=== PATIENT | male | born 1955 | race African-American/Black ===

== ENCOUNTER 2016-07-01 12:53 | Inpatient (IN) | payer OTHER ==
[2016-07-01 15:22] VITALS: BMI 27.3
--- NOTE | 2016-07-01 16:28 | HP ---
COWS - Scale Resting Pulse: 0= [place] 80 or Below Sweatin= Chills/Flushing Restless Observation: 3= Extraneous Movement Pupil Size: 0= Normal to Room Light Bone or Joint Aches: 2= Severe Diffuse Aches Runny Nose/ Eye Tearin= Runny Nose/Eyes GI Upset > 30mins: 3= Vomiting/Diarrhea Tremor Observation: 2= Slight Tremor Visible Yawning Observation: 0= None Anxiety or Irritability: 2=Irritable/Anxious Goose Flesh Skin: 3=Piloerection COWS Score: 18 Admission ROS S - [facility] Chief Complaint: withdrawal sx Allergies/Adverse Reactions: Allergies Allergy/AdvReac Type Severity Reaction Status Date / Time No Known Allergies Allergy Verified 01/02/16 16:24 History of Present Illness: 61 years old male with long history of opiate nicotine dependence has hypertension asthma and arthritis of the knees ambulate with cane x 1 1/2 yearss , has schizophrenia have not hear voice "for a long time" is admitted to detox Exam Limitations: No Limitations - Ebola screening Have you traveled outside of the country in the last 21 days: No Have you had contact with anyone from an Ebola affected area: No Have you been sick,other than usual withdrawal symptoms: No Do you have a fever: No - Review of Systems Constitutional: Night Sweats, Changes in sleep EENT: reports: Other (eye glassess at home) Respiratory: reports: SOB with Exertion, Productive cough (greenish) Cardiac: reports: No Symptoms Reported GI: reports: Diarrhea, Nausea, Poor Fluid Intake, Vomiting, Abdominal cramping : reports: No Symptoms Reported Musculoskeletal: reports: Back Pain, Joint Pain, Muscle Pain, Muscle Weakness ( knees), Neck Pain Integumentary: reports: Dryness Neuro: reports: Tremors Endocrine: reports: No Symptoms Reported Hematology: reports: No Symptoms Reported Psychiatric: reports: Judgement Intact, Orientated x3, other (schizophrenia) Other Systems: Reviewed and Negative Patient History - Patient Medical History Hx Anemia: Yes (SICKLE CELL ANEMIA WITH CRISIS, 04/2016) Hx Asthma: Yes (on albuterol inhaler) Hx Chronic Obstructive Pulmonary Disease (COPD): No Hx Cancer: No Hx Cardiac Disorders: No Hx Congestive Heart Failure: No Hx Hypertension: Yes (non compliance) Hx Hypercholesterolemia: No Hx Pacemaker: No HX Cerebrovascular Accident: No Hx Seizures: No Hx Dementia: No Hx Diabetes: No Hx Gastrointestinal Disorders: No Hx Liver Disease: No Hx Genitourinary Disorders: No Hx Sexually Transmitted Disorders: No Hx Renal Disease (ESRD): No Hx Thyroid Disease: No Hx Human Immunodeficiency Virus (HIV): No Hx Hepatitis C: No Hx Depression: No Hx Suicide Attempt: No Hx Bipolar Disorder: No Hx Schizophrenia: Yes (paranoiod schizophrenia) - Patient Surgical History Past Surgical History: Yes Hx Neurologic Surgery: No Hx Cataract Extraction: No Hx Cardiac Surgery: No Hx Lung Surgery: No Hx Breast Surgery: No Hx Breast Biopsy: No Hx Abdominal Surgery: Yes (SPLENECTOMY IN 1998) Hx Appendectomy: No Hx Cholecystectomy: No Hx Genitourinary Surgery: No Hx Orthopedic Surgery: No Other Surgical History: Left inguinal hernia repair Anesthesia Reaction: No - PPD History Previous Implant?: Yes Documented Results: Negative w/proof Implanted On [facility] Admission?: Yes Date: 12/27/15 Results: 0 mm PPD to be Administered?: No - Smoking Cessation Smoking history: Current every day smoker Have you smoked in the past 12 months: Yes Aproximately how many cigarettes per day: 20 If you are a former smoker, when did you quit?: 2 WEEKS AGO Cigars Per Day: 0 Hx Chewing Tobacco Use: No Initiated information on smoking cessation: Yes 'Breaking Loose' booklet given: 07/01/16 - Substance & Tx. History Hx Alcohol Use: No Hx Substance Use: Yes Substance Use Type: Opiates Hx Substance Use Treatment: Yes - Substances Abused Heroin Route: Inhalation Frequency: Daily Amount used: 20 bags Age of first use: 18 Date of Last Use: 07/01/16 Family Disease History - Family Disease History Family Disease History: Heart Disease: Mother (HTN,?CAV,DRUG & ALCOHOL,) , Other: Father (no contact), Mother, Brother (no contact) Admission Physical Exam BHS - Vital Signs Vital Signs: Vital Signs - 24 hr 07/01/16 15:20 Temperature 96.4 F L Pulse Rate 66 Respiratory 16 Rate Blood Pressure 159/87 - Physical General Appearance: Yes: Nourished, Appropriately Dressed, Moderate Distress, Tremorous, Irritable, Sweating, Anxious HEENTM: Yes: Hearing grossly Normal, Normal ENT Inspection, Normocephalic, Normal Voice Respiratory: Yes: Chest Non-Tender, Lungs Clear, Normal Breath Sounds, No Respiratory Distress, No Accessory Muscle Use Neck: Yes: Supple, Trachea in good position Breast: Yes: Breasts Symetrical Cardiology: Yes: Regular Rhythm, S1, S2, Murmur (x 2 years unable to audiable) Abdominal: Yes: Non Tender, Soft Genitourinary: Yes: Within Normal Limits Back: Yes: Normal Inspection Musculoskeletal: Yes: Gait Steady, Muscle weakness (legs) Extremities: Yes: Normal Range of Motion, Non-Tender, Tremors Neurological: Yes: Fully Oriented, Alert, Normal Response, Depressed Affect Integumentary: Yes: Dry, Warm Lymphatic: Yes: Within Normal Limits - Diagnostic (1) Essential hypertension Current Visit: Yes Status: Acute (2) Paranoid schizophrenia Current Visit: Yes Status: Suspected (3) Asthma Current Visit: Yes Status: Acute Qualifiers: Asthma severity: mild intermittent Asthma complication type: with status asthmaticus Qualified Code(s): J45.22 - Mild intermittent asthma with status asthmaticus (4) Nicotine dependence Current Visit: Yes Status: Acute Qualifiers: Nicotine product type: cigarettes Substance use status: in withdrawal Qualified Code(s): F17.213 - Nicotine dependence, cigarettes, with withdrawal (5) Opioid dependence with withdrawal Current Visit: Yes Status: Acute (6) Sickle cell anemia Current Visit: Yes Status: Inactive Qualifiers: Sickle-cell associated disorders: with splenic sequestration Qualified Code(s): 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
[2016-07-01] MEDS ORDERED: IBUPROFEN 400 MG TABLET (FP) PO PRN ×2 (16:36→16:46)
[2016-07-01] MEDS ORDERED: MAG HYDROX/AL HYDROX/SIMETH 30 ML UNIT-DOSE CUP PO PRN (16:36)
[2016-07-01] MEDS ORDERED: guaiFENesin/D-METHORPHAN HB 10 ML UNIT-DOSE CUPS PO PRN (16:36)
[2016-07-01] MEDS ORDERED: LOPERAMIDE HCL 2 MG CAPSULE PO PRN (16:36)
[2016-07-01] MEDS ORDERED: MAGNESIUM HYDROX 2400MG/30ML ORAL SUSPENSION 30 ML CUP PO PRN (16:36)
[2016-07-01] MEDS ORDERED: MAGNESIUM CITRATE 300 ML BOTTLE PO PRN (16:36)
[2016-07-01] MEDS ORDERED: MENTHOL/PHENOL 1 EACH UD MM PRN (16:36)
[2016-07-01] MEDS ORDERED: P-EPHED 60MG/TRIPROLIDI 2.5MG TABLET PO PRN (16:36)
[2016-07-01] MEDS ORDERED: NICOTINE POLACRILEX 4 MG GUM BC PRN (16:36)
[2016-07-01] MEDS ORDERED: ALBUTEROL SO4 6.7 GM HFA INHALER IH PRN (16:39)
[2016-07-01] MEDS ORDERED: COLLOIDAL OATMEAL 1 BAR EACH TP PRN (16:51)
[2016-07-01] MEDS ORDERED: METHADONE HCL 10 MG TABLET (FOR DETOX USE ONLY) PO ONE ×2 (18:30→23:00)
[2016-07-01] MEDS: diazePAM 5 MG TABLET PO PRN (19:18)
[2016-07-01] MEDS: IBUPROFEN 600 MG TABLET (FP) PO PRN (19:30)
[2016-07-01 21:11] LABS: MCH 33.6 pg (25.7-33.7); MEAN CELL VOLUME 101.9 fl (80-96); MEAN PLT VOLUME 9.3 fl (7.5-11.1); PLATELET COUNT 418 K/MM3 (134-434); RDW 23.8 % (11.9-15.9); WHITE BLOOD COUNT 12.9 K/mm3 (4.0-10.0)
[2016-07-01 21:33] LABS: ALBUMIN 4.7 g/dl (3.4-5.0); ALK PHOS 155 U/L (45-117); ANION GAP 9 (8-16); BILIRUBIN,TOTAL 2.1 mg/dL (0.2-1.0); CALCIUM 9.2 mg/dL (8.5-10.1); CO2 27 mmol/L (21-32); CREATININE 0.7 mg/dL (0.7-1.3); GLUCOSE,RANDOM 100 mg/dL (74-106); SGOT/AST 17 U/L (15-37); SGPT/ALT 24 U/L (12-78); TOT PROT 7.5 g/dl (6.4-8.2)
[2016-07-01] MEDS: [UNRECOGNIZED DRUG - OTHER] PO SCH (22:22)
[2016-07-01] MEDS: THIAMINE HCL 100 MG TABLET (FP) PO SCH (22:22)
[2016-07-01] MEDS: diphenhydrAMINE HCL 50 MG CAPSULE PO PRN (22:23)
[2016-07-01] MEDS: MINERAL OIL/PETROLAT/WATER TOPICAL CREAM 113 GM JAR TP SCH (22:23)
[2016-07-01 22:56] LABS: ANISOCYTOSIS 3+; HYPOCHROMIA 2+
[2016-07-01 22:57] LABS: OVALOCYTES 1+; TARGET CELLS 1+
[2016-07-01] MEDS: NIFEdipine E.R. 30 MG TABLET (FP) PO SCH (23:03)
[2016-07-01 23:11] LABS: URINE APPEARANCE CLEAR; URINE BILIRUBIN NEGATIVE (NEGATIVE); URINE BLOOD NEGATIVE (NEGATIVE); URINE COLOR YELLOW; URINE GLUCOSE (UA) NEGATIVE (NEGATIVE); URINE KETONE NEGATIVE (NEGATIVE); URINE LEUK ESTERASE NEGATIVE (NEGATIVE); URINE NITRITE NEGATIVE (NEGATIVE); URINE PROTEIN NEGATIVE (NEGATIVE); URINE UROBILINOGEN NEGATIVE E.U./dl (0.2-1.0)
[2016-07-02] MEDS: IBUPROFEN 600 MG TABLET (FP) PO PRN ×2 (03:52→13:42)
--- NOTE | 2016-07-02 08:02 | PN ---
S COWS - Scale Resting Pulse: 1= [place] 81-100 Sweatin= Chills/Flushing Restless Observation: 3= Extraneous Movement Pupil Size: 2= Moderately Dilated Bone or Joint Aches: 2= Severe Diffuse Aches Runny Nose/ Eye Tearin= Runny Nose/Eyes GI Upset > 30mins: 3= Vomiting/Diarrhea Tremor Observation of Outstretched Hands: 2= Slight Tremor Visible Yawning Observation: 1= 1-2x During Session Anxiety or Irritability: 2=Irritable/Anxious Goose Flesh Skin: 0=Smooth Skin COWS Score: 19 S Progress Note (SOAP) Subjective: ALERT,IRRITABLE,ANXIOUS,INTERRUPTED SLEEP,TREMOR,PAIN IN THE BODY AND BACK Objective: 07/02/16 07:59 Vital Signs Temperature 98.7 F 07/01/16 21:55 Pulse Rate 88 07/01/16 21:55 Respiratory Rate 18 07/02/16 06:30 Blood Pressure 154/73 07/01/16 21:55 O2 Sat by Pulse Oximetry (%) EKG NSR WITH PAC NO CHEST PAIN,NO SOB,NO DIZZINESS Laboratory Last Values WBC 12.9 K/mm3 (4.0-10.0) H 07/01/16 11:00 RBC 2.81 M/mm3 (4.00-5.60) L 07/01/16 11:00 Hgb 9.5 GM/dL (11.7-16.9) L D 07/01/16 11:00 Hct 28.7 % (35.4-49) L D 07/01/16 11:00 MCV 101.9 fl (80-96) H 07/01/16 11:00 MCHC 33.0 g/dl (32.0-35.9) 07/01/16 11:00 RDW 23.8 % (11.9-15.9) H D 07/01/16 11:00 Plt Count 418 K/MM3 (134-434) 07/01/16 11:00 MPV 9.3 fl (7.5-11.1) 07/01/16 11:00 Hypochromic-Microcytic 2+ 07/01/16 11:00 Anisocytosis 3+ 07/01/16 11:00 Macrocytosis 1+ 07/01/16 11:00 Sickle Cells 2+ 07/01/16 11:00 Target Cells 1+ 07/01/16 11:00 Ovalocytes 1+ 07/01/16 11:00 Sodium 138 mmol/L (136-145) 07/01/16 11:00 Potassium 4.6 mmol/L (3.5-5.1) 07/01/16 11:00 Chloride 102 mmol/L (98-107) 07/01/16 11:00 Carbon Dioxide 27 mmol/L (21-32) 07/01/16 11:00 Anion Gap 9 (8-16) 07/01/16 11:00 BUN 19 mg/dL (7-18) H 07/01/16 11:00 Creatinine 0.7 mg/dL (0.7-1.3) 07/01/16 11:00 Creat Clearance w eGFR > 60 (>60) 07/01/16 11:00 Random Glucose 100 mg/dL (74-106) 07/01/16 11:00 Calcium 9.2 mg/dL (8.5-10.1) 07/01/16 11:00 Total Bilirubin 2.1 mg/dL (0.2-1.0) H 07/01/16 11:00 AST 17 U/L (15-37) D 07/01/16 11:00 ALT 24 U/L (12-78) D 07/01/16 11:00 Alkaline Phosphatase 155 U/L (45-117) H D 07/01/16 11:00 Total Protein 7.5 g/dl (6.4-8.2) 07/01/16 11:00 Albumin 4.7 g/dl (3.4-5.0) 07/01/16 11:00 Urine Color Yellow 07/01/16 23:00 Urine Appearance Clear 07/01/16 23:00 Urine pH 5.0 (5.0-8.0) 07/01/16 23:00 Ur Specific [place] 1.014 (1.001-1.035) 07/01/16 23:00 Urine Protein Negative (NEGATIVE) 07/01/16 23:00 Urine Glucose (UA) Negative (NEGATIVE) 07/01/16 23:00 Urine Ketones Negative (NEGATIVE) 07/01/16 23:00 Urine Blood Negative (NEGATIVE) 07/01/16 23:00 Urine Nitrite Negative (NEGATIVE) 07/01/16 23:00 Urine Bilirubin Negative (NEGATIVE) 07/01/16 23:00 Urine Urobilinogen Negative E.U./dl (0.2-1.0) 07/01/16 23:00 Ur Leukocyte Esterase Negative (NEGATIVE) 07/01/16 23:00 LANS PENDING Assessment: 07/02/16 08:01 WITHDRAWAL SYMPTOM Plan: CONTINUE DETOX
[2016-07-02 09:09] LABS: HIV 1 & 2 AB NEGATIVE; HIV 1 AGp24 NEGATIVE
[2016-07-02] MEDS ORDERED: LISINOPRIL 10 MG TABLET (FP) PO SCH (10:00)
[2016-07-02] MEDS ORDERED: NIFEdipine E.R 60 MG TABLET (UD) PO SCH (10:00)
[2016-07-02] MEDS ORDERED: NIFEdipine E.R. 30 MG TABLET (FP) PO SCH (10:00)
[2016-07-02] MEDS ORDERED: METHADONE HCL 10 MG TABLET (FOR DETOX USE ONLY) PO ONE (10:00)
[2016-07-02] MEDS: NIFEdipine E.R. 30 MG TABLET (FP) PO SCH (10:09)
[2016-07-02] MEDS: HYDROXYUREA 500 MG CAPSULE PO SCH (10:09)
[2016-07-02] MEDS: PRENATAL VITAMINS W/ FOLIC ACID TABLET (FP) PO SCH (10:09)
[2016-07-02] MEDS: NICOTINE 21 MG/24 HOURS TOPICAL PATCH TD SCH (10:10)
[2016-07-02] MEDS: [UNRECOGNIZED DRUG - OTHER] PO SCH ×2 (10:10→22:58)
[2016-07-02] MEDS: LISINOPRIL 10 MG TABLET (FP) PO SCH (10:10)
[2016-07-02] MEDS: diazePAM 5 MG TABLET PO PRN ×2 (13:42→22:31)
--- NOTE | 2016-07-02 18:35 | CONSULT ---
[facility] Psychiatric Consult - Data Date of interview: 07/02/16 Admission source: Patient refused psychiatric evaluation.
[2016-07-02] MEDS: THIAMINE HCL 100 MG TABLET (FP) PO SCH (22:30)
[2016-07-02] MEDS: diphenhydrAMINE HCL 50 MG CAPSULE PO PRN (22:30)
[2016-07-02] MEDS: MINERAL OIL/PETROLAT/WATER TOPICAL CREAM 113 GM JAR TP SCH (22:58)
[2016-07-03] MEDS: ACETAMINOPHEN 325 MG TABLET (FP) PO PRN (06:05)
[2016-07-03] MEDS: diazePAM 5 MG TABLET PO PRN ×2 (06:06→19:43)
--- NOTE | 2016-07-03 08:41 | PN ---
S COWS - Scale Resting Pulse: 0= [place] 80 or Below Sweatin=Flushed/Facial Moisture Restless Observation: 3= Extraneous Movement Pupil Size: 1= Pupils >than Normal Bone or Joint Aches: 2= Severe Diffuse Aches Runny Nose/ Eye Tearin= Runny Nose/Eyes GI Upset > 30mins: 3= Vomiting/Diarrhea Tremor Observation of Outstretched Hands: 2= Slight Tremor Visible Yawning Observation: 1= 1-2x During Session Anxiety or Irritability: 2=Irritable/Anxious Goose Flesh Skin: 0=Smooth Skin COWS Score: 18 BHS Progress Note (SOAP) Subjective: ALERT,IRRITABLE,ANXIOUS,INTERRUPTED SLEEP,TREMOR,PAIN IN THE BODY Objective: 07/03/16 08:39 Vital Signs Temperature 98.1 F 07/03/16 06:42 Pulse Rate 73 07/03/16 06:42 Respiratory Rate 18 07/03/16 06:42 Blood Pressure 147/97 07/03/16 06:42 O2 Sat by Pulse Oximetry (%) Laboratory Last Values WBC 12.9 K/mm3 (4.0-10.0) H 07/01/16 11:00 RBC 2.81 M/mm3 (4.00-5.60) L 07/01/16 11:00 Hgb 9.5 GM/dL (11.7-16.9) L D 07/01/16 11:00 Hct 28.7 % (35.4-49) L D 07/01/16 11:00 MCV 101.9 fl (80-96) H 07/01/16 11:00 MCHC 33.0 g/dl (32.0-35.9) 07/01/16 11:00 RDW 23.8 % (11.9-15.9) H D 07/01/16 11:00 Plt Count 418 K/MM3 (134-434) 07/01/16 11:00 MPV 9.3 fl (7.5-11.1) 07/01/16 11:00 Hypochromic-Microcytic 2+ 07/01/16 11:00 Anisocytosis 3+ 07/01/16 11:00 Macrocytosis 1+ 07/01/16 11:00 Sickle Cells 2+ 07/01/16 11:00 Target Cells 1+ 07/01/16 11:00 Ovalocytes 1+ 07/01/16 11:00 Sodium 138 mmol/L (136-145) 07/01/16 11:00 Potassium 4.6 mmol/L (3.5-5.1) 07/01/16 11:00 Chloride 102 mmol/L (98-107) 07/01/16 11:00 Carbon Dioxide 27 mmol/L (21-32) 07/01/16 11:00 Anion Gap 9 (8-16) 07/01/16 11:00 BUN 19 mg/dL (7-18) H 07/01/16 11:00 Creatinine 0.7 mg/dL (0.7-1.3) 07/01/16 11:00 Creat Clearance w eGFR > 60 (>60) 07/01/16 11:00 Random Glucose 100 mg/dL (74-106) 07/01/16 11:00 Calcium 9.2 mg/dL (8.5-10.1) 07/01/16 11:00 Total Bilirubin 2.1 mg/dL (0.2-1.0) H 07/01/16 11:00 AST 17 U/L (15-37) D 07/01/16 11:00 ALT 24 U/L (12-78) D 07/01/16 11:00 Alkaline Phosphatase 155 U/L (45-117) H D 07/01/16 11:00 Total Protein 7.5 g/dl (6.4-8.2) 07/01/16 11:00 Albumin 4.7 g/dl (3.4-5.0) 07/01/16 11:00 Urine Color Yellow 07/01/16 23:00 Urine Appearance Clear 07/01/16 23:00 Urine pH 5.0 (5.0-8.0) 07/01/16 23:00 Ur Specific [place] 1.014 (1.001-1.035) 07/01/16 23:00 Urine Protein Negative (NEGATIVE) 07/01/16 23:00 Urine Glucose (UA) Negative (NEGATIVE) 07/01/16 23:00 Urine Ketones Negative (NEGATIVE) 07/01/16 23:00 Urine Blood Negative (NEGATIVE) 07/01/16 23:00 Urine Nitrite Negative (NEGATIVE) 07/01/16 23:00 Urine Bilirubin Negative (NEGATIVE) 07/01/16 23:00 Urine Urobilinogen Negative E.U./dl (0.2-1.0) 07/01/16 23:00 Ur Leukocyte Esterase Negative (NEGATIVE) 07/01/16 23:00 RPR Titer Nonreactive (NONREACTIVE) 07/01/16 11:00 HIV 1&2 Antibody Screen Negative 07/01/16 11:00 HIV P24 Antigen Negative 07/01/16 11:00 Assessment: 07/03/16 08:40 WITHDRAWAL [id number] Plan: CONTINUE DETOX,HISTORY OF ANEMIA,FERROUS SULFATE 325 MGS PO BID
[2016-07-03] MEDS ORDERED: METHADONE HCL 5 MG TABLET (FOR DETOX USE ONLY) PO ONE (10:00)
[2016-07-03] MEDS: PRENATAL VITAMINS W/ FOLIC ACID TABLET (FP) PO SCH (10:13)
[2016-07-03] MEDS: LISINOPRIL 10 MG TABLET (FP) PO SCH (10:14)
[2016-07-03] MEDS: IBUPROFEN 600 MG TABLET (FP) PO PRN ×2 (10:14→18:34)
[2016-07-03] MEDS: NIFEdipine E.R. 30 MG TABLET (FP) PO SCH (10:14)
[2016-07-03] MEDS: FERROUS SO4 325 MG TABLET (FP) PO SCH ×2 (10:14→22:13)
[2016-07-03] MEDS: NICOTINE 21 MG/24 HOURS TOPICAL PATCH TD SCH (10:14)
[2016-07-03] MEDS: [UNRECOGNIZED DRUG - OTHER] PO SCH ×2 (10:14→22:13)
[2016-07-03] MEDS: HYDROXYUREA 500 MG CAPSULE PO SCH (10:14)
--- NOTE | 2016-07-03 13:18 | EKG ---
Test Reason : Blood Pressure : / mmHG Vent. Rate : 074 BPM Atrial Rate : 074 BPM P-R Int : 204 ms QRS Dur : 132 ms QT Int : 426 ms P-R-T Axes : 079 022 044 degrees QTc Int : 472 ms NORMAL SINUS RHYTHM POSSIBLE LEFT ATRIAL ENLARGEMENT NON-SPECIFIC CHANGE IN ST SEGMENT IN NON-SPECIFIC INTRA-VENTRICULAR CONDUCTION BLOCK ABNORMAL ECG WHEN COMPARED WITH ECG OF 01-JUL-2016 21:08, PREMATURE ATRIAL COMPLEXES ARE NO LONGER PRESENT Confirmed by ERNIE CARABALLO MD ([id number]) on 07/03/2016 1:18:12 PM Referred By: Confirmed By:ERNIE CARABALLO MD
--- NOTE | 2016-07-03 13:23 | EKG ---
Test Reason : Blood Pressure : / mmHG Vent. Rate : 075 BPM Atrial Rate : 075 BPM P-R Int : 206 ms QRS Dur : 132 ms QT Int : 406 ms P-R-T Axes : 076 025 053 degrees QTc Int : 453 ms SINUS RHYTHM WITH PREMATURE ATRIAL COMPLEXES POSSIBLE LEFT ATRIAL ENLARGEMENT NON-SPECIFIC INTRA-VENTRICULAR CONDUCTION BLOCK ABNORMAL ECG Confirmed by ERNIE CARABALLO MD ([id number]) on 07/03/2016 1:23:05 PM Referred By: Confirmed By:ERNIE CARABALLO MD
[2016-07-03] MEDS: diphenhydrAMINE HCL 50 MG CAPSULE PO PRN (22:13)
[2016-07-03] MEDS: THIAMINE HCL 100 MG TABLET (FP) PO SCH (22:13)
[2016-07-03] MEDS: MINERAL OIL/PETROLAT/WATER TOPICAL CREAM 113 GM JAR TP SCH (22:14)
[2016-07-04] MEDS: IBUPROFEN 600 MG TABLET (FP) PO PRN ×2 (05:58→15:25)
[2016-07-04] MEDS: diazePAM 5 MG TABLET PO PRN (05:58)
--- NOTE | 2016-07-04 09:29 | PN ---
S Progress Note (SOAP) Subjective: ALERT,IRRITABLE,ANXIOUS,INTERRUPTED SLEEP,PAIN IN THE BODY AND RIGHT KNEE Objective: 07/04/16 09:28 Vital Signs Temperature 97.3 F L 07/04/16 06:37 Pulse Rate 72 07/04/16 06:37 Respiratory Rate 16 07/04/16 06:37 Blood Pressure 158/91 07/04/16 06:37 O2 Sat by Pulse Oximetry (%) Assessment: 07/04/16 09:28 WITHDRAWAL SYMPTOM Plan: CONTINUE DETOX
[2016-07-04] MEDS ORDERED: METHADONE HCL 5 MG TABLET (FOR DETOX USE ONLY) PO ONE (10:00)
[2016-07-04] MEDS: LISINOPRIL 10 MG TABLET (FP) PO SCH (10:22)
[2016-07-04] MEDS: FERROUS SO4 325 MG TABLET (FP) PO SCH ×2 (10:22→22:04)
[2016-07-04] MEDS: HYDROXYUREA 500 MG CAPSULE PO SCH (10:22)
[2016-07-04] MEDS: PRENATAL VITAMINS W/ FOLIC ACID TABLET (FP) PO SCH (10:23)
[2016-07-04] MEDS: [UNRECOGNIZED DRUG - OTHER] PO SCH ×2 (10:23→22:04)
[2016-07-04] MEDS: NICOTINE 21 MG/24 HOURS TOPICAL PATCH TD SCH (10:23)
[2016-07-04] MEDS: NIFEdipine E.R. 30 MG TABLET (FP) PO SCH (10:23)
[2016-07-04] MEDS: THIAMINE HCL 100 MG TABLET (FP) PO SCH (22:04)
[2016-07-04] MEDS: diphenhydrAMINE HCL 50 MG CAPSULE PO PRN (22:04)
[2016-07-04] MEDS: MINERAL OIL/PETROLAT/WATER TOPICAL CREAM 113 GM JAR TP SCH (22:05)
[2016-07-04] MEDS: METOPROLOL SUCCINATE 25 MG TAB.SR.24H (FP) PO SCH (23:19)
[2016-07-05] MEDS: IBUPROFEN 600 MG TABLET (FP) PO PRN ×2 (02:20→18:37)
[2016-07-05] MEDS ORDERED: METOPROLOL SUCCINATE 25 MG TAB.SR.24H (FP) PO SCH (10:00)
[2016-07-05] MEDS ORDERED: METHADONE HCL 10 MG TABLET (FOR DETOX USE ONLY) PO ONE (10:00)
[2016-07-05] MEDS ORDERED: ONDANSETRON *ODT* 4 MG TABLET SL PRN (10:08)
[2016-07-05] MEDS: FERROUS SO4 325 MG TABLET (FP) PO SCH ×2 (10:22→22:11)
[2016-07-05] MEDS: NICOTINE 21 MG/24 HOURS TOPICAL PATCH TD SCH ×2 (10:22→11:52)
[2016-07-05] MEDS: METOPROLOL SUCCINATE 25 MG TAB.SR.24H (FP) PO SCH ×2 (10:22→22:11)
[2016-07-05] MEDS: PRENATAL VITAMINS W/ FOLIC ACID TABLET (FP) PO SCH (10:22)
[2016-07-05] MEDS: LISINOPRIL 10 MG TABLET (FP) PO SCH (10:22)
[2016-07-05] MEDS: HYDROXYUREA 500 MG CAPSULE PO SCH (10:22)
[2016-07-05] MEDS: NIFEdipine E.R. 30 MG TABLET (FP) PO SCH (10:23)
[2016-07-05] MEDS: [UNRECOGNIZED DRUG - OTHER] PO SCH ×2 (10:23→22:29)
--- NOTE | 2016-07-05 13:57 | PN ---
S Progress Note (SOAP) Subjective: Nausea / Vomiting, Sweating, Tremors, Body Aches. Pt. reporting discomfort in scrotum when urinating X approximately 1 week. Pt. also reporting that he has noticed urine "leaking" and discharge of "pus" from penis. Objective: PT. A & O X 1 (DISORIENTED ABOUT DAY / DATE AND LOCATION). PT. OBSERVED AMBULATING ON UNIT. Visual inspection of penis and scrotum areas revealed no abnormalities, including pus, lesions, redness, swelling, or any signs of infection. No abnormalities noted in UA drawn on admission. 07/05/16 13:54 Vital Signs Temperature 96.4 F L 07/05/16 10:22 Pulse Rate 72 07/05/16 10:22 Respiratory Rate 16 07/05/16 10:22 Blood Pressure 154/92 07/05/16 10:22 O2 Sat by Pulse Oximetry (%) Laboratory Last Values WBC 12.9 K/mm3 (4.0-10.0) H 07/01/16 11:00 RBC 2.81 M/mm3 (4.00-5.60) L 07/01/16 11:00 Hgb 9.5 GM/dL (11.7-16.9) L D 07/01/16 11:00 Hct 28.7 % (35.4-49) L D 07/01/16 11:00 MCV 101.9 fl (80-96) H 07/01/16 11:00 MCHC 33.0 g/dl (32.0-35.9) 07/01/16 11:00 RDW 23.8 % (11.9-15.9) H D 07/01/16 11:00 Plt Count 418 K/MM3 (134-434) 07/01/16 11:00 MPV 9.3 fl (7.5-11.1) 07/01/16 11:00 Hypochromic-Microcytic 2+ 07/01/16 11:00 Anisocytosis 3+ 07/01/16 11:00 Macrocytosis 1+ 07/01/16 11:00 Sickle Cells 2+ 07/01/16 11:00 Target Cells 1+ 07/01/16 11:00 Ovalocytes 1+ 07/01/16 11:00 Sodium 138 mmol/L (136-145) 07/01/16 11:00 Potassium 4.6 mmol/L (3.5-5.1) 07/01/16 11:00 Chloride 102 mmol/L (98-107) 07/01/16 11:00 Carbon Dioxide 27 mmol/L (21-32) 07/01/16 11:00 Anion Gap 9 (8-16) 07/01/16 11:00 BUN 19 mg/dL (7-18) H 07/01/16 11:00 Creatinine 0.7 mg/dL (0.7-1.3) 07/01/16 11:00 Creat Clearance w eGFR > 60 (>60) 07/01/16 11:00 Random Glucose 100 mg/dL (74-106) 07/01/16 11:00 Calcium 9.2 mg/dL (8.5-10.1) 07/01/16 11:00 Total Bilirubin 2.1 mg/dL (0.2-1.0) H 07/01/16 11:00 AST 17 U/L (15-37) D 07/01/16 11:00 ALT 24 U/L (12-78) D 07/01/16 11:00 Alkaline Phosphatase 155 U/L (45-117) H D 07/01/16 11:00 Total Protein 7.5 g/dl (6.4-8.2) 07/01/16 11:00 Albumin 4.7 g/dl (3.4-5.0) 07/01/16 11:00 Urine Color Yellow 07/01/16 23:00 Urine Appearance Clear 07/01/16 23:00 Urine pH 5.0 (5.0-8.0) 07/01/16 23:00 Ur Specific [place] 1.014 (1.001-1.035) 07/01/16 23:00 Urine Protein Negative (NEGATIVE) 07/01/16 23:00 Urine Glucose (UA) Negative (NEGATIVE) 07/01/16 23:00 Urine Ketones Negative (NEGATIVE) 07/01/16 23:00 Urine Blood Negative (NEGATIVE) 07/01/16 23:00 Urine Nitrite Negative (NEGATIVE) 07/01/16 23:00 Urine Bilirubin Negative (NEGATIVE) 07/01/16 23:00 Urine Urobilinogen Negative E.U./dl (0.2-1.0) 07/01/16 23:00 Ur Leukocyte Esterase Negative (NEGATIVE) 07/01/16 23:00 RPR Titer Nonreactive (NONREACTIVE) 07/01/16 11:00 HIV 1&2 Antibody Screen Negative 07/01/16 11:00 HIV P24 Antigen Negative 07/01/16 11:00 LABS NOTED. Assessment: 07/05/16 13:57 WITHDRAWAL SYMPTOMS Plan: CONTINUE DETOX. PRN ZOFRAN FOR NAUSEA / VOMITING. PATIENT ENCOURAGED TO INCREASE PO FLUID INTAKE.
[2016-07-05] MEDS: ACETAMINOPHEN 325 MG TABLET (FP) PO PRN (20:12)
[2016-07-05] MEDS: THIAMINE HCL 100 MG TABLET (FP) PO SCH (22:11)
[2016-07-05] MEDS: diphenhydrAMINE HCL 50 MG CAPSULE PO PRN (22:12)
[2016-07-05] MEDS: MINERAL OIL/PETROLAT/WATER TOPICAL CREAM 113 GM JAR TP SCH (22:13)
[2016-07-06] MEDS ORDERED: METHADONE HCL 5 MG TABLET (FOR DETOX USE ONLY) PO ONE (06:00)
[2016-07-06 06:26] VITALS: BP 145/85; PULSE 66; TEMP 97.3
--- NOTE | 2016-07-06 14:05 | DS ---
[facility] Detox Discharge Summary Admission Date: 07/01/16 Discharge Date: 07/06/16 - History Present History: Opioid Dependence Additional Comments: ADVISED PATIENT TO FOLLOW-UP WITH [facility] / REHAB MEDICAL PROVIDER AFTER DISCHARGE FROM DETOX FOR GENERAL MEDICAL ASSESSMENT AND ABNORMAL LAB VALUES. Pertinent Past History: Asthma, HTN, Sickle Cell Anemia, Schizophrenia. - Physical Exam Results Vital Signs: Vital Signs Temperature 97.3 F L 07/06/16 06:25 Pulse Rate 66 07/06/16 06:25 Respiratory Rate 16 07/06/16 06:25 Blood Pressure 145/85 07/06/16 06:25 O2 Sat by Pulse Oximetry (%) Pertinent Admission Physical Exam Findings: WITHDRAWAL SYMPTOMS. Laboratory Last Values WBC 12.9 K/mm3 (4.0-10.0) H 07/01/16 11:00 RBC 2.81 M/mm3 (4.00-5.60) L 07/01/16 11:00 Hgb 9.5 GM/dL (11.7-16.9) L D 07/01/16 11:00 Hct 28.7 % (35.4-49) L D 07/01/16 11:00 MCV 101.9 fl (80-96) H 07/01/16 11:00 MCHC 33.0 g/dl (32.0-35.9) 07/01/16 11:00 RDW 23.8 % (11.9-15.9) H D 07/01/16 11:00 Plt Count 418 K/MM3 (134-434) 07/01/16 11:00 MPV 9.3 fl (7.5-11.1) 07/01/16 11:00 Hypochromic-Microcytic 2+ 07/01/16 11:00 Anisocytosis 3+ 07/01/16 11:00 Macrocytosis 1+ 07/01/16 11:00 Sickle Cells 2+ 07/01/16 11:00 Target Cells 1+ 07/01/16 11:00 Ovalocytes 1+ 07/01/16 11:00 Sodium 138 mmol/L (136-145) 07/01/16 11:00 Potassium 4.6 mmol/L (3.5-5.1) 07/01/16 11:00 Chloride 102 mmol/L (98-107) 07/01/16 11:00 Carbon Dioxide 27 mmol/L (21-32) 07/01/16 11:00 Anion Gap 9 (8-16) 07/01/16 11:00 BUN 19 mg/dL (7-18) H 07/01/16 11:00 Creatinine 0.7 mg/dL (0.7-1.3) 07/01/16 11:00 Creat Clearance w eGFR > 60 (>60) 07/01/16 11:00 Random Glucose 100 mg/dL (74-106) 07/01/16 11:00 Calcium 9.2 mg/dL (8.5-10.1) 07/01/16 11:00 Total Bilirubin 2.1 mg/dL (0.2-1.0) H 07/01/16 11:00 AST 17 U/L (15-37) D 07/01/16 11:00 ALT 24 U/L (12-78) D 07/01/16 11:00 Alkaline Phosphatase 155 U/L (45-117) H D 07/01/16 11:00 Total Protein 7.5 g/dl (6.4-8.2) 07/01/16 11:00 Albumin 4.7 g/dl (3.4-5.0) 07/01/16 11:00 Urine Color Yellow 07/01/16 23:00 Urine Appearance Clear 07/01/16 23:00 Urine pH 5.0 (5.0-8.0) 07/01/16 23:00 Ur Specific [place] 1.014 (1.001-1.035) 07/01/16 23:00 Urine Protein Negative (NEGATIVE) 07/01/16 23:00 Urine Glucose (UA) Negative (NEGATIVE) 07/01/16 23:00 Urine Ketones Negative (NEGATIVE) 07/01/16 23:00 Urine Blood Negative (NEGATIVE) 07/01/16 23:00 Urine Nitrite Negative (NEGATIVE) 07/01/16 23:00 Urine Bilirubin Negative (NEGATIVE) 07/01/16 23:00 Urine Urobilinogen Negative E.U./dl (0.2-1.0) 07/01/16 23:00 Ur Leukocyte Esterase Negative (NEGATIVE) 07/01/16 23:00 RPR Titer Nonreactive (NONREACTIVE) 07/01/16 11:00 HIV 1&2 Antibody Screen Negative 07/01/16 11:00 HIV P24 Antigen Negative 07/01/16 11:00 LABS NOTED. - Treatment Hospital Course: Detox Protocol Followed, Detoxed Safely, Responded well, Discharged Condition Good Patient has Accepted a Rehab Referral to: PT. TO GO HOME FOR [facility] AND WILL SEEK OUT REHAB ON HIS OWN. - Medication Discharge Medications: Ambulatory Orders Risperidone [Risperdal -] 1 mg PO BID #60 tablet 02/02/14 Albuterol Sulfate Inhaler - [Ventolin Hfa Inhaler -] 2 inh PO Q4H 12/30/15 Mirtazapine [Remeron -] 7.5 mg PO HS #60 tablet 01/08/16 Ca/D3/Mag Ox/Zinc/Recovery Assistant/Se/Bor [Calcium 600+D3 Plus Caplet] 1 each PO BID Sertraline HCl [Zoloft -] 50 mg PO DAILY 07/01/16 Albuterol Sulfate Inhaler - [Ventolin HFA Inhaler -] 2 puff IH Q4H PRN #1 inhaler 07/06/16 Folic Acid - 1 mg PO DAILY 30 Days 07/06/16 Hydroxyurea [Hydrea -] 500 mg PO DAILY #30 07/06/16 Lisinopril [Prinivil] 10 mg PO DAILY #30 tablet 07/06/16 Naproxen Sodium [Naproxen Sodium Ds] 550 mg PO DAILY PRN #30 07/06/16 Nifedipine ER [Procardia XL -] 30 mg PO DAILY #30 07/06/16 - Diagnosis (1) Asthma Status: Chronic Qualifiers: Asthma severity: mild intermittent Asthma complication type: uncomplicated Qualified Code(s): J45.20 - Mild intermittent asthma, uncomplicated (2) Cannabis dependence Status: Acute (3) Dry skin Status: Chronic (4) Essential hypertension Status: Chronic (5) Nicotine dependence Status: Chronic Qualifiers: Nicotine product type: cigarettes Substance use status: in withdrawal Qualified Code(s): F17.213 - Nicotine dependence, cigarettes, with withdrawal (6) Opioid dependence with withdrawal Status: Acute (7) Weight decreased Status: Acute (8) Use of cane as ambulatory aid Status: Chronic (9) Paranoid schizophrenia Status: Suspected (10) Sickle cell anemia Status: Chronic Qualifiers: Sickle-cell associated disorders: with splenic sequestration Qualified Code(s): 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
== END 2016-07-06 09:15 | disposition home or self-care (01) | DRG 773 ==
LOC: YASAS 12:53 → Y3N 18:01
PROVIDERS: ADMIT Internal Medicine; ATTEND Internal Medicine
PROC: HZ2ZZZZ Detoxification Services for Substance Abuse Treatment (ICD-10-PCS; principal; 2016-07-06)
DX: F11.23 Opioid dependence with withdrawal (principal); F12.20 Cannabis dependence, uncomplicated; F17.210 Nicotine dependence, cigarettes, uncomplicated; F20.0 Paranoid schizophrenia; I10 Essential (primary) hypertension; J45.22 Mild intermittent asthma with status asthmaticus; L85.3 Xerosis cutis; D57.02 Hb-SS disease with splenic sequestration; R63.4 Abnormal weight loss; Z68.27 Body mass index [BMI] 27.0-27.9, adult; R26.2 Difficulty in walking, not elsewhere classified; Z90.81 Acquired absence of spleen
CPT/HCPCS: 36415; 80053; 81003; 85027; 86593; 87389; 93005; 93010; J8999

== ENCOUNTER 2017-05-30 11:25 | Inpatient (IN) | payer OTHER ==
[2017-05-30 12:15] VITALS: BMI 24.3
--- NOTE | 2017-05-30 13:45 | HP ---
COWS - Scale Resting Pulse: 0= [place] 80 or Below Sweatin= Chills/Flushing Restless Observation: 0= Sits Still Pupil Size: 0= Normal to Room Light Bone or Joint Aches: 2= Severe Diffuse Aches Runny Nose/ Eye Tearin= Nasal Congestion GI Upset > 30mins: 3= Vomiting/Diarrhea Tremor Observation: 2= Slight Tremor Visible Yawning Observation: 2= >3x During Session Anxiety or Irritability: 2=Irritable/Anxious Goose Flesh Skin: 0=Smooth Skin COWS Score: 13 Admission ROS S - [facility] Chief Complaint: "I want to get off of heroin." Patient is here to Detox from Heroin. Allergies/Adverse Reactions: Allergies Allergy/AdvReac Type Severity Reaction Status Date / Time No Known Allergies Allergy Verified 05/30/17 14:44 History of Present Illness: Patient is a 61 YO male here to Detox from Heroin. Patient has several previous Detox admissions at [facility] (last: 06/2016). Longest period of non-drug use in recent years: approx. 2 years (2006 - 2008). Exam Limitations: No Limitations - Ebola screening Have you traveled outside of the country in the last 21 days: No Have you had contact with anyone from an Ebola affected area: No Have you been sick,other than usual withdrawal symptoms: No Do you have a fever: No - Review of Systems Constitutional: Chills, Diaphoresis, Fever, Loss of Appetite, Malaise, Night Sweats, Changes in sleep, Other (Patient ambulates with a Walker.) EENT: reports: Tearing, Hearing Loss Respiratory: reports: SOB at Rest Cardiac: reports: No Symptoms Reported GI: reports: Diarrhea, Nausea, Poor Appetite, Vomiting, Indigestion, Abdominal cramping : reports: No Symptoms Reported Musculoskeletal: reports: Back Pain, Joint Pain, Muscle Pain, Neck Pain, Joint Stiffness Integumentary: reports: No Symptoms Reported Neuro: reports: Numbness (Bilateral Feet.), Tingling (Bilateral Feet.), Tremors Endocrine: reports: No Symptoms Reported Hematology: reports: No Symptoms Reported Psychiatric: reports: Judgement Intact, Mood/Affect Appropiate, Anxious, Depressed (On meds.), Disorientated (To current Day / Date.) Other Systems: Reviewed and Negative Patient History - Patient Medical History Hx Anemia: Yes (SICKLE CELL ANEMIA WITH CRISIS, 04/2016) Hx Asthma: Yes (on albuterol inhaler) Hx Chronic Obstructive Pulmonary Disease (COPD): No Hx Cancer: No Hx Cardiac Disorders: Yes (Murmur.) Hx Congestive Heart Failure: No Hx Hypertension: Yes (non compliance) Hx Hypercholesterolemia: Yes (On meds.) Hx Pacemaker: No HX Cerebrovascular Accident: No Hx Seizures: No Hx Dementia: No Hx Diabetes: No Hx Gastrointestinal Disorders: No Hx Liver Disease: Yes (Hepatitis C.) Hx Genitourinary Disorders: No Hx Sexually Transmitted Disorders: No Hx Renal Disease (ESRD): No Hx Thyroid Disease: No Hx Human Immunodeficiency Virus (HIV): No (Last Tested: 2016: NEGATIVE.) Hx Hepatitis C: Yes (Diagnosed 2017. Started treatment, did not complete treatment.) Hx Depression: Yes (On meds.) Hx Suicide Attempt: No (PATIENT DENIES CURRENT SI / HI.) Hx Bipolar Disorder: Yes (On meds.) Hx Schizophrenia: Yes (paranoiod schizophrenia) Other Medical History: DENIES. - Patient Surgical History Past Surgical History: Yes Hx Neurologic Surgery: No Hx Cataract Extraction: No Hx Cardiac Surgery: No Hx Lung Surgery: No Hx Breast Surgery: No Hx Breast Biopsy: No Hx Abdominal Surgery: Yes (SPLENECTOMY IN 1998) Hx Appendectomy: No Hx Cholecystectomy: No Hx Genitourinary Surgery: No Hx Section: No Hx Orthopedic Surgery: No Other Surgical History: DENIES. Anesthesia Reaction: No - PPD History Previous Implant?: Yes Documented Results: Negative w/o proof Implanted On Prior [facility] Admission?: Yes Date: 12/27/15 Results: 0 mm PPD to be Administered?: Yes - Reproductive History Patient is a Female of Child Bearing Age (11 -55 yrs old): No (PATIENT IS MALE.) - Smoking Cessation Smoking history: Current every day smoker Have you smoked in the past 12 months: Yes Aproximately how many cigarettes per day: 5 Cigars Per Day: 0 Hx Chewing Tobacco Use: No Initiated information on smoking cessation: Yes 'Breaking Loose' booklet given: 05/30/17 (GIVEN TO PATIENT.) - Substance & Tx. History Hx Alcohol Use: No Hx Substance Use: Yes Substance Use Type: Heroin Hx Substance Use Treatment: Yes (Previous Detox admssions at [facility] (Last: 06/2016 ).) - Substances Abused Heroin Route: Inhalation Frequency: Daily Amount used: 4-5 Bags. Age of first use: 18 Date of Last Use: 05/30/17 Family Disease History - Family Disease History Family Disease History: Heart Disease: Mother (HTN,?CAV,DRUG & ALCOHOL,) , Other: Father (no contact), Mother, Brother (no contact), Son (Sickle Cell Trait.) Admission Physical Exam [facility] - Vital Signs Vital Signs: Vital Signs - 24 hr 05/30/17 12:12 Temperature 98.9 F Pulse Rate 75 Respiratory 18 Rate Blood Pressure 89/60 - Physical General Appearance: Yes: No Apparent Distress, Nourished, Appropriately Dressed , Tremorous, Anxious, Other (Ambulates with assistance of a walker.) HEENTM: Yes: Hearing grossly Normal, Normocephalic, Normal Voice, MIMI, Pharynx Normal Respiratory: Yes: Chest Non-Tender, Lungs Clear, No Respiratory Distress, No Accessory Muscle Use Neck: Yes: No masses,lesions,Nodules, Supple, Trachea in good position Breast: Yes: Breast Exam Deferred Cardiology: Yes: Regular Rhythm, Regular Rate, S1, S2 Abdominal: Yes: Normal Bowel Sounds, Non Tender, Flat, Soft Genitourinary: Yes: Within Normal Limits Back: Yes: Decreased Range of Motion Musculoskeletal: Yes: Back pain, Joint Stiffness, Muscle Pain Extremities: Yes: Normal Capillary Refill, Tremors Neurological: Yes: Alert, Normal Mood/Affect, Normal Response, Disoriented (To Current Day / Date).) Integumentary: Yes: Normal Color, Dry, Warm Lymphatic: Yes: Within Normal Limits - Diagnostic (1) Depression Current Visit: Yes Status: Acute Qualifiers: Depression Type: unspecified Qualified Code(s): F32.9 - Major depressive disorder, single episode, unspecified (2) Uses walker Current Visit: Yes Status: Chronic (3) Opioid dependence with withdrawal Current Visit: Yes Status: Acute (4) Asthma Current Visit: Yes Status: Chronic Qualifiers: Asthma severity: mild Asthma persistence: intermittent Asthma complication type: uncomplicated Qualified Code(s): J45.20 - Mild intermittent asthma, uncomplicated (5) Essential hypertension Current Visit: Yes Status: Chronic (6) Nicotine dependence Current Visit: Yes Status: Chronic Qualifiers: Nicotine product type: cigarettes Substance use status: uncomplicated Qualified Code(s): F17.210 - Nicotine dependence, cigarettes, uncomplicated (7) Sickle cell anemia Current Visit: Yes Status: Chronic Qualifiers: Sickle-cell associated disorders: with splenic sequestration Qualified Code (s): 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 (8) Paranoid schizophrenia Current Visit: Yes Status: Suspected (9) Hepatitis C Current Visit: Yes Status: Chronic Qualifiers: Viral hepatitis chronicity: chronic Hepatic coma status: without hepatic coma Qualified Code(s): B18.2 - Chronic viral hepatitis C (10) Hypercholesterolemia Current Visit: Yes Status: Chronic (11) History of splenectomy Current Visit: Yes Status: Resolved Cleared for Admission [facility] - Detox or Rehab [facility] Level of Care: Medically Managed Detox Regimen/Protocol: Methadone [facility] Breath Alcohol Content Breath Alcohol Content: 0 Urine Drug Screen - Results Drug Screen Negative: No Urine Drug Screen Results: OPI-Opiates, OXY-Oxycodone
[2017-05-30] MEDS ORDERED: MENTHOL/PHENOL 1 EACH UD MM PRN (15:26)
[2017-05-30] MEDS ORDERED: guaiFENesin/D-METHORPHAN HB 10 ML UNIT-DOSE CUPS PO PRN (15:26)
[2017-05-30] MEDS ORDERED: ACETAMINOPHEN 325 MG TABLET (FP) PO PRN (15:26)
[2017-05-30] MEDS ORDERED: MAGNESIUM HYDROX 2400MG/30ML ORAL SUSPENSION 30 ML CUP PO PRN (15:26)
[2017-05-30] MEDS ORDERED: NICOTINE POLACRILEX 2 MG GUM BC PRN (15:26)
[2017-05-30] MEDS ORDERED: MAGNESIUM CITRATE 300 ML BOTTLE PO PRN (15:26)
[2017-05-30] MEDS ORDERED: LOPERAMIDE HCL 2 MG CAPSULE PO PRN (15:26)
[2017-05-30] MEDS ORDERED: MAG HYDROX/AL HYDROX/SIMETH 30 ML UNIT-DOSE CUP PO PRN (15:26)
[2017-05-30] MEDS ORDERED: P-EPHED 60MG/TRIPROLIDI 2.5MG TABLET PO PRN (15:26)
[2017-05-30] MEDS ORDERED: ALBUTEROL SO4 18 GM HFA INHALER IH PRN (15:29)
[2017-05-30] MEDS: diazePAM 5 MG TABLET PO PRN ×2 (17:06→22:11)
[2017-05-30] MEDS ORDERED: METHADONE HCL 10 MG TABLET (FOR DETOX USE ONLY) PO ONE ×2 (17:15→23:00)
[2017-05-30] MEDS: NICOTINE 14 MG/24 HOURS TOPICAL PATCH TD SCH (17:40)
[2017-05-30] MEDS ORDERED: cloNIDine HCL 0.1 MG TABLET PO ONE (18:15)
[2017-05-30] MEDS: THIAMINE HCL 100 MG TABLET (FP) PO SCH (22:11)
[2017-05-30] MEDS: NAPROXEN 500 MG TABLET (FP) PO PRN (22:14)
[2017-05-30 22:26] LABS: URINE APPEARANCE CLEAR; URINE BILIRUBIN NEGATIVE (NEGATIVE); URINE BLOOD NEGATIVE (NEGATIVE); URINE COLOR DKYELLOW; URINE GLUCOSE (UA) NEGATIVE (NEGATIVE); URINE KETONE NEGATIVE (NEGATIVE); URINE LEUK ESTERASE NEGATIVE (NEGATIVE); URINE NITRITE NEGATIVE (NEGATIVE); URINE PROTEIN 2+ (NEGATIVE); URINE UROBILINOGEN NEGATIVE mg/dL (0.2-1.0)
[2017-05-30 22:49] LABS: URINE HYALINE CAST 2 /lpf; URINE MUCUS RARE
[2017-05-31] MEDS ORDERED: METHADONE HCL 10 MG TABLET (FOR DETOX USE ONLY) PO ONE (10:00)
[2017-05-31 10:34] LABS: ALBUMIN 3.9 g/dl (3.4-5.0); ALK PHOS 109 U/L (45-117); ANION GAP 6 (8-16); BILIRUBIN,TOTAL 4.9 mg/dL (0.2-1.0); BLOOD UREA NITROGEN 14 mg/dL (7-18); CALCIUM 8.3 mg/dL (8.5-10.1); CHLORIDE 107 mmol/L (98-107); CO2 29 mmol/L (21-32); CREATININE 0.8 mg/dL (0.7-1.3); GLUCOSE,RANDOM 80 mg/dL (74-106); POTASSIUM 4.4 mmol/L (3.5-5.1); SGOT/AST 25 U/L (15-37); SGPT/ALT 22 U/L (12-78); SODIUM 142 mmol/L (136-145); TOT PROT 6.6 g/dl (6.4-8.2)
[2017-05-31] MEDS: NICOTINE 14 MG/24 HOURS TOPICAL PATCH TD SCH (10:53)
[2017-05-31] MEDS: ASPIRIN 81 MG CHEWABLE TABLETS PO SCH (10:53)
[2017-05-31] MEDS: LISINOPRIL 20 MG TABLET (FP) PO SCH (10:53)
[2017-05-31] MEDS: HYDROXYUREA 500 MG CAPSULE PO SCH (10:53)
[2017-05-31] MEDS: TAMSULOSIN HCL 0.4 MG CAP.ER.24H (FP) PO SCH (10:53)
[2017-05-31] MEDS: PRENATAL VITAMINS W/ FOLIC ACID TABLET (FP) PO SCH (10:53)
[2017-05-31] MEDS: NIFEdipine E.R. 30 MG TABLET (FP) PO SCH (10:54)
[2017-05-31 10:55] LABS: HEMATOCRIT 24.6 % (35.4-49); HEMOGLOBIN 7.9 GM/dL (11.7-16.9); MCHC 32.1 g/dl (32.0-35.9); MEAN CELL VOLUME 99.6 fl (80-96); MEAN PLT VOLUME 9.9 fl (7.5-11.1); PLATELET COUNT 323 K/MM3 (134-434); RBC 2.47 M/mm3 (4.00-5.60); RDW 24.3 % (11.9-15.9); WHITE BLOOD COUNT 10.6 K/mm3 (4.0-10.0)
--- NOTE | 2017-05-31 14:22 | CONSULT ---
[facility] Psychiatric Consult - Data Date of interview: 05/31/17 Admission source: [facility] Identifying data: Patient is approached at bedside for the requested psychiatric interview.Response : " I don't want to talk to anyone.I have the right to refuse.Go away." Nursing staff is immediately informed of patient's hostility and uncooperativeness.
--- NOTE | 2017-05-31 16:00 | EKG ---
Test Reason : Blood Pressure : / mmHG Vent. Rate : 074 BPM Atrial Rate : 074 BPM P-R Int : 176 ms QRS Dur : 104 ms QT Int : 436 ms P-R-T Axes : 087 046 056 degrees QTc Int : 483 ms NORMAL SINUS RHYTHM POSSIBLE LEFT ATRIAL ENLARGEMENT LEFT VENTRICULAR HYPERTROPHY PROLONGED QT ABNORMAL ECG WHEN COMPARED WITH ECG OF 01-JUL-2016 21:08, NO SIGNIFICANT CHANGE WAS FOUND Confirmed by RASHMI RUSHING, ERNIE ([id number]) on 05/31/2017 4:00:25 PM Referred By: Confirmed By:ERNIE CARABALLO MD
--- NOTE | 2017-05-31 17:06 | PN ---
[facility] COWS - Scale Resting Pulse: 0= [place] 80 or Below Sweatin= Chills/Flushing Restless Observation: 3= Extraneous Movement Pupil Size: 0= Normal to Room Light Bone or Joint Aches: 2= Severe Diffuse Aches Runny Nose/ Eye Tearin= Runny Nose/Eyes GI Upset > 30mins: 2= Nausea/Diarrhea Tremor Observation of Outstretched Hands: 2= Slight Tremor Visible Yawning Observation: 1= 1-2x During Session Anxiety or Irritability: 2=Irritable/Anxious Goose Flesh Skin: 0=Smooth Skin COWS Score: 15 [facility] Progress Note (SOAP) Subjective: Stomach ache, headache, interrupted sleep, anxious Objective: 05/31/17 17:04 Last Vital Signs Temp Pulse Resp BP Pulse Ox 98.1 F 77 18 160/80 05/31/17 14:13 05/31/17 14:13 05/31/17 14:13 05/31/17 14:13 Laboratory Tests 05/30/17 05/31/17 05/31/17 20:15 08:00 08:00 WBC 10.6 H RBC 2.47 L Hgb 7.9 L D Hct 24.6 L MCV 99.6 H MCH 32.0 MCHC 32.1 RDW 24.3 H Plt Count 323 D MPV 9.9 Sodium 142 Potassium 4.4 Chloride 107 Carbon Dioxide 29 Anion Gap 6 L BUN 14 D Creatinine 0.8 Creat Clearance w eGFR > 60 Random Glucose 80 Calcium 8.3 L Total Bilirubin 4.9 H D AST 25 D ALT 22 Alkaline Phosphatase 109 D Total Protein 6.6 Albumin 3.9 Urine Color Dkyellow Urine Appearance Clear Urine pH 5.0 Ur Specific [place] 1.013 Urine Protein 2+ H Urine Glucose (UA) Negative Urine Ketones Negative Urine Blood Negative Urine Nitrite Negative Urine Bilirubin Negative Urine Urobilinogen Negative Ur Leukocyte Esterase Negative Urine WBC (Auto) 1 Urine RBC (Auto) None Hyaline Casts 2 Urine Mucus Rare RPR Titer 05/31/17 08:00 WBC RBC Hgb Hct MCV MCH MCHC RDW Plt Count MPV Sodium Potassium Chloride Carbon Dioxide Anion Gap BUN Creatinine Creat Clearance w eGFR Random Glucose Calcium Total Bilirubin AST ALT Alkaline Phosphatase Total Protein Albumin Urine Color Urine Appearance Urine pH Ur Specific [place] Urine Protein Urine Glucose (UA) Urine Ketones Urine Blood Urine Nitrite Urine Bilirubin Urine Urobilinogen Ur Leukocyte Esterase Urine WBC (Auto) Urine RBC (Auto) Hyaline Casts Urine Mucus RPR Titer Nonreactive Labs noted: abnormal UA Assessment: 05/31/17 17:05 Withdrawal symptoms Noted with abnormal UA Plan: Continue detox Abnormal UA: encouraged to drink lots of water, repeat UA
[2017-05-31] MEDS: NAPROXEN 500 MG TABLET (FP) PO PRN (20:36)
[2017-05-31] MEDS: diazePAM 5 MG TABLET PO PRN (22:30)
[2017-05-31] MEDS: THIAMINE HCL 100 MG TABLET (FP) PO SCH (22:30)
[2017-06-01] MEDS ORDERED: METHADONE HCL 5 MG TABLET (FOR DETOX USE ONLY) PO ONE (10:00)
[2017-06-01 10:08] LABS: URINE APPEARANCE CLEAR; URINE BILIRUBIN NEGATIVE (NEGATIVE); URINE BLOOD NEGATIVE (NEGATIVE); URINE COLOR YELLOW; URINE GLUCOSE (UA) NEGATIVE (NEGATIVE); URINE KETONE NEGATIVE (NEGATIVE); URINE LEUK ESTERASE NEGATIVE (NEGATIVE); URINE NITRITE NEGATIVE (NEGATIVE); URINE PROTEIN NEGATIVE (NEGATIVE); URINE UROBILINOGEN 4.0 E.U/dl mg/dL (0.2-1.0)
[2017-06-01] MEDS: LISINOPRIL 20 MG TABLET (FP) PO SCH (10:36)
[2017-06-01] MEDS: NIFEdipine E.R. 30 MG TABLET (FP) PO SCH (10:36)
[2017-06-01] MEDS: TAMSULOSIN HCL 0.4 MG CAP.ER.24H (FP) PO SCH (10:36)
[2017-06-01] MEDS: NICOTINE 14 MG/24 HOURS TOPICAL PATCH TD SCH (10:36)
[2017-06-01] MEDS: ASPIRIN 81 MG CHEWABLE TABLETS PO SCH (10:36)
[2017-06-01] MEDS: PRENATAL VITAMINS W/ FOLIC ACID TABLET (FP) PO SCH (10:36)
[2017-06-01] MEDS: HYDROXYUREA 500 MG CAPSULE PO SCH (10:37)
[2017-06-01] MEDS: NAPROXEN 500 MG TABLET (FP) PO PRN ×2 (10:39→22:26)
[2017-06-01] MEDS: diazePAM 5 MG TABLET PO PRN (22:24)
[2017-06-01] MEDS: THIAMINE HCL 100 MG TABLET (FP) PO SCH (22:24)
--- NOTE | 2017-06-01 23:04 | PN ---
S COWS - Scale Resting Pulse: 0= [place] 80 or Below Sweatin=Flushed/Facial Moisture Restless Observation: 1= Difficult to Sit Still Pupil Size: 0= Normal to Room Light Bone or Joint Aches: 1= Mild Discomfort Runny Nose/ Eye Tearin= Nasal Congestion GI Upset > 30mins: 2= Nausea/Diarrhea Tremor Observation of Outstretched Hands: 2= Slight Tremor Visible Yawning Observation: 0= None Anxiety or Irritability: 2=Irritable/Anxious Goose Flesh Skin: 0=Smooth Skin COWS Score: 11 [facility] Progress Note (SOAP) Subjective: sleepless diarrhea abd pain Objective: 06/01/17 23:02 A & o x 3 No acute distress Laboratory Last Values WBC 10.6 K/mm3 (4.0-10.0) H 05/31/17 08:00 RBC 2.47 M/mm3 (4.00-5.60) L 05/31/17 08:00 Hgb 7.9 GM/dL (11.7-16.9) L D 05/31/17 08:00 Hct 24.6 % (35.4-49) L 05/31/17 08:00 MCV 99.6 fl (80-96) H 05/31/17 08:00 MCH 32.0 pg (25.7-33.7) 05/31/17 08:00 MCHC 32.1 g/dl (32.0-35.9) 05/31/17 08:00 RDW 24.3 % (11.9-15.9) H 05/31/17 08:00 Plt Count 323 K/MM3 (134-434) D 05/31/17 08:00 MPV 9.9 fl (7.5-11.1) 05/31/17 08:00 Sodium 142 mmol/L (136-145) 05/31/17 08:00 Potassium 4.4 mmol/L (3.5-5.1) 05/31/17 08:00 Chloride 107 mmol/L (98-107) 05/31/17 08:00 Carbon Dioxide 29 mmol/L (21-32) 05/31/17 08:00 Anion Gap 6 (8-16) L 05/31/17 08:00 BUN 14 mg/dL (7-18) D 05/31/17 08:00 Creatinine 0.8 mg/dL (0.7-1.3) 05/31/17 08:00 Creat Clearance w eGFR > 60 (>60) 05/31/17 08:00 Random Glucose 80 mg/dL (74-106) 05/31/17 08:00 Calcium 8.3 mg/dL (8.5-10.1) L 05/31/17 08:00 Total Bilirubin 4.9 mg/dL (0.2-1.0) H D 05/31/17 08:00 AST 25 U/L (15-37) D 05/31/17 08:00 ALT 22 U/L (12-78) 05/31/17 08:00 Alkaline Phosphatase 109 U/L (45-117) D 05/31/17 08:00 Total Protein 6.6 g/dl (6.4-8.2) 05/31/17 08:00 Albumin 3.9 g/dl (3.4-5.0) 05/31/17 08:00 Urine Color Yellow 06/01/17 08:20 Urine Appearance Clear 06/01/17 08:20 Urine pH 6.0 (5.0-8.0) 06/01/17 08:20 Ur Specific [place] 1.010 (1.001-1.035) 06/01/17 08:20 Urine Protein Negative (NEGATIVE) 06/01/17 08:20 Urine Glucose (UA) Negative (NEGATIVE) 06/01/17 08:20 Urine Ketones Negative (NEGATIVE) 06/01/17 08:20 Urine Blood Negative (NEGATIVE) 06/01/17 08:20 Urine Nitrite Negative (NEGATIVE) 06/01/17 08:20 Urine Bilirubin Negative (NEGATIVE) 06/01/17 08:20 Urine Urobilinogen 4.0 e.u/dl mg/dL (0.2-1.0) 06/01/17 08:20 Ur Leukocyte Esterase Negative (NEGATIVE) 06/01/17 08:20 Urine WBC (Auto) 1 /hpf (3-5) 05/30/17 20:15 Urine RBC (Auto) None /hpf (0-3) 05/30/17 20:15 Hyaline Casts 2 /lpf 05/30/17 20:15 Urine Mucus Rare 05/30/17 20:15 RPR Titer Nonreactive (NONREACTIVE) 05/31/17 08:00 Hepatitis C Antibody 0.1 s/co ratio (0.0-0.9) 05/31/17 08:00 HIV 1&2 Antibody Screen Negative 05/31/17 08:00 HIV P24 Antigen Negative 05/31/17 08:00 Assessment: 06/01/17 23:03 withdrawal sx Plan: continue detox
[2017-06-02] MEDS ORDERED: METHADONE HCL 5 MG TABLET (FOR DETOX USE ONLY) PO ONE (10:00)
[2017-06-02] MEDS: NIFEdipine E.R. 30 MG TABLET (FP) PO SCH (10:36)
[2017-06-02] MEDS: TAMSULOSIN HCL 0.4 MG CAP.ER.24H (FP) PO SCH (10:36)
[2017-06-02] MEDS: HYDROXYUREA 500 MG CAPSULE PO SCH (10:36)
[2017-06-02] MEDS: PRENATAL VITAMINS W/ FOLIC ACID TABLET (FP) PO SCH (10:36)
[2017-06-02] MEDS: LISINOPRIL 20 MG TABLET (FP) PO SCH (10:36)
[2017-06-02] MEDS: NICOTINE 14 MG/24 HOURS TOPICAL PATCH TD SCH (10:37)
[2017-06-02] MEDS: ASPIRIN 81 MG CHEWABLE TABLETS PO SCH (10:37)
[2017-06-02] MEDS: NAPROXEN 500 MG TABLET (FP) PO PRN (17:49)
[2017-06-02] MEDS: THIAMINE HCL 100 MG TABLET (FP) PO SCH (22:30)
[2017-06-03] MEDS ORDERED: METHADONE HCL 10 MG TABLET (FOR DETOX USE ONLY) PO ONE (10:00)
[2017-06-03] MEDS: NIFEdipine E.R. 30 MG TABLET (FP) PO SCH (10:27)
[2017-06-03] MEDS: ASPIRIN 81 MG CHEWABLE TABLETS PO SCH (10:27)
[2017-06-03] MEDS: HYDROXYUREA 500 MG CAPSULE PO SCH (10:28)
[2017-06-03] MEDS: TAMSULOSIN HCL 0.4 MG CAP.ER.24H (FP) PO SCH (10:28)
[2017-06-03] MEDS: PRENATAL VITAMINS W/ FOLIC ACID TABLET (FP) PO SCH (10:28)
[2017-06-03] MEDS: LISINOPRIL 20 MG TABLET (FP) PO SCH (10:28)
[2017-06-03] MEDS: NICOTINE 14 MG/24 HOURS TOPICAL PATCH TD SCH (10:28)
--- NOTE | 2017-06-03 12:48 | PN ---
BHS Progress Note (SOAP) Subjective: Body aches, Anxious. Objective: PT. A & O X 3, OBSERVED AMBULATING ON UNIT WITH ASSISTANCE OF A WALKER. NO ACUTE DISTRESS. 06/03/17 12:46 Vital Signs Temperature 97.3 F L 06/03/17 09:57 Pulse Rate 80 06/03/17 09:57 Respiratory Rate 20 06/03/17 09:57 Blood Pressure 156/86 06/03/17 09:57 O2 Sat by Pulse Oximetry (%) Laboratory Tests 05/30/17 05/31/17 05/31/17 20:15 08:00 08:00 WBC 10.6 H RBC 2.47 L Hgb 7.9 L D Hct 24.6 L MCV 99.6 H MCH 32.0 MCHC 32.1 RDW 24.3 H Plt Count 323 D MPV 9.9 Sodium 142 Potassium 4.4 Chloride 107 Carbon Dioxide 29 Anion Gap 6 L BUN 14 D Creatinine 0.8 Creat Clearance w eGFR > 60 Random Glucose 80 Calcium 8.3 L Total Bilirubin 4.9 H D AST 25 D ALT 22 Alkaline Phosphatase 109 D Total Protein 6.6 Albumin 3.9 Urine Color Dkyellow Urine Appearance Clear Urine pH 5.0 Ur Specific [place] 1.013 Urine Protein 2+ H Urine Glucose (UA) Negative Urine Ketones Negative Urine Blood Negative Urine Nitrite Negative Urine Bilirubin Negative Urine Urobilinogen Negative Ur Leukocyte Esterase Negative Urine WBC (Auto) 1 Urine RBC (Auto) None Hyaline Casts 2 Urine Mucus Rare RPR Titer Hepatitis C Antibody HIV 1&2 Antibody Screen HIV P24 Antigen 05/31/17 05/31/17 05/31/17 08:00 08:00 08:00 WBC RBC Hgb Hct MCV MCH MCHC RDW Plt Count MPV Sodium Potassium Chloride Carbon Dioxide Anion Gap BUN Creatinine Creat Clearance w eGFR Random Glucose Calcium Total Bilirubin AST ALT Alkaline Phosphatase Total Protein Albumin Urine Color Urine Appearance Urine pH Ur Specific [place] Urine Protein Urine Glucose (UA) Urine Ketones Urine Blood Urine Nitrite Urine Bilirubin Urine Urobilinogen Ur Leukocyte Esterase Urine WBC (Auto) Urine RBC (Auto) Hyaline Casts Urine Mucus RPR Titer Nonreactive Hepatitis C Antibody 0.1 HIV 1&2 Antibody Screen Negative HIV P24 Antigen Negative 06/01/17 08:20 WBC RBC Hgb Hct MCV MCH MCHC RDW Plt Count MPV Sodium Potassium Chloride Carbon Dioxide Anion Gap BUN Creatinine Creat Clearance w eGFR Random Glucose Calcium Total Bilirubin AST ALT Alkaline Phosphatase Total Protein Albumin Urine Color Yellow Urine Appearance Clear Urine pH 6.0 Ur Specific [place] 1.010 Urine Protein Negative Urine Glucose (UA) Negative Urine Ketones Negative Urine Blood Negative Urine Nitrite Negative Urine Bilirubin Negative Urine Urobilinogen 4.0 e.u/dl Ur Leukocyte Esterase Negative Urine WBC (Auto) Urine RBC (Auto) Hyaline Casts Urine Mucus RPR Titer Hepatitis C Antibody HIV 1&2 Antibody Screen HIV P24 Antigen LABS NOTED. Assessment: 06/03/17 12:47 WITHDRAWAL SYMPTOMS. Plan: CONTINUE DETOX.
[2017-06-03] MEDS: THIAMINE HCL 100 MG TABLET (FP) PO SCH (22:16)
[2017-06-04] MEDS: NAPROXEN 500 MG TABLET (FP) PO PRN (01:39)
[2017-06-04] MEDS ORDERED: METHADONE HCL 5 MG TABLET (FOR DETOX USE ONLY) PO ONE (06:00)
[2017-06-04 06:15] VITALS: BP 132/76; PULSE 63; TEMP 98.1
--- NOTE | 2017-06-04 12:53 | DS ---
[facility] Detox Discharge Summary Admission Date: 05/30/17 Discharge Date: 06/04/17 - History Present History: Alcohol Dependence Additional Comments: NO BEDS AVAILABLE AT [facility] AT THIS [facility]. THEREFORE, PATIENT WILL RETURN HOME FOR TIME BEING AND WILL THEN APPLY FOR [facility]MISS[facility] AND EACH AFTER UNTIL HE IS ABLE TO SECURE A BED. PATIENT WAS DISCHARGED FROM DETOX UNIT IN STABLE MEDICAL CONDITION. Pertinent Past History: Asthma, HTN, Hypercholesterolemia, History of Sickle cell Anemia (with Crisis), Use of Walker as ambulatory aid, Bipolar Disorder, Schizophrenia, Depression, Nicotine Dependence, History of Splenectomy. - Physical Exam Results Vital Signs: Vital Signs Temperature 98.1 F 06/04/17 06:14 Pulse Rate 63 06/04/17 06:14 Respiratory Rate 18 06/04/17 06:14 Blood Pressure 132/76 06/04/17 06:14 O2 Sat by Pulse Oximetry (%) Pertinent Admission Physical Exam Findings: WITHDRAWAL SYMPTOMS. Laboratory Tests 05/30/17 05/31/17 05/31/17 20:15 08:00 08:00 WBC 10.6 H RBC 2.47 L Hgb 7.9 L D Hct 24.6 L MCV 99.6 H MCH 32.0 MCHC 32.1 RDW 24.3 H Plt Count 323 D MPV 9.9 Sodium 142 Potassium 4.4 Chloride 107 Carbon Dioxide 29 Anion Gap 6 L BUN 14 D Creatinine 0.8 Creat Clearance w eGFR > 60 Random Glucose 80 Calcium 8.3 L Total Bilirubin 4.9 H D AST 25 D ALT 22 Alkaline Phosphatase 109 D Total Protein 6.6 Albumin 3.9 Urine Color Dkyellow Urine Appearance Clear Urine pH 5.0 Ur Specific [place] 1.013 Urine Protein 2+ H Urine Glucose (UA) Negative Urine Ketones Negative Urine Blood Negative Urine Nitrite Negative Urine Bilirubin Negative Urine Urobilinogen Negative Ur Leukocyte Esterase Negative Urine WBC (Auto) 1 Urine RBC (Auto) None Hyaline Casts 2 Urine Mucus Rare RPR Titer Hepatitis C Antibody HIV 1&2 Antibody Screen HIV P24 Antigen 05/31/17 05/31/17 05/31/17 08:00 08:00 08:00 WBC RBC Hgb Hct MCV MCH MCHC RDW Plt Count MPV Sodium Potassium Chloride Carbon Dioxide Anion Gap BUN Creatinine Creat Clearance w eGFR Random Glucose Calcium Total Bilirubin AST ALT Alkaline Phosphatase Total Protein Albumin Urine Color Urine Appearance Urine pH Ur Specific [place] Urine Protein Urine Glucose (UA) Urine Ketones Urine Blood Urine Nitrite Urine Bilirubin Urine Urobilinogen Ur Leukocyte Esterase Urine WBC (Auto) Urine RBC (Auto) Hyaline Casts Urine Mucus RPR Titer Nonreactive Hepatitis C Antibody 0.1 HIV 1&2 Antibody Screen Negative HIV P24 Antigen Negative 06/01/17 08:20 WBC RBC Hgb Hct MCV MCH MCHC RDW Plt Count MPV Sodium Potassium Chloride Carbon Dioxide Anion Gap BUN Creatinine Creat Clearance w eGFR Random Glucose Calcium Total Bilirubin AST ALT Alkaline Phosphatase Total Protein Albumin Urine Color Yellow Urine Appearance Clear Urine pH 6.0 Ur Specific [place] 1.010 Urine Protein Negative Urine Glucose (UA) Negative Urine Ketones Negative Urine Blood Negative Urine Nitrite Negative Urine Bilirubin Negative Urine Urobilinogen 4.0 e.u/dl Ur Leukocyte Esterase Negative Urine WBC (Auto) Urine RBC (Auto) Hyaline Casts Urine Mucus RPR Titer Hepatitis C Antibody HIV 1&2 Antibody Screen HIV P24 Antigen LABS NOTED. - Treatment Hospital Course: Detox Protocol Followed, Detoxed Safely, Responded well, Discharged Condition Good, Rehab Referral Accepted Patient has Accepted a Rehab Referral to: [facility] ([place], [place] . - Medication Discharge Medications: Ambulatory Orders Mirtazapine [Remeron -] 7.5 mg PO HS #60 tablet 01/08/16 Ca/D3/Mag Ox/Zinc/Winding Lathe Operator/Se/Bor [Calcium 600+D3 Plus Caplet] 1 each PO BID Sertraline HCl [Zoloft -] 50 mg PO DAILY 07/01/16 Albuterol Sulfate Inhaler - [Ventolin HFA Inhaler -] 2 puff IH Q4H PRN #1 inhaler 07/06/16 Folic Acid - 1 mg PO DAILY 30 Days 07/06/16 Hydroxyurea [Hydrea -] 500 mg PO DAILY #30 07/06/16 Nifedipine ER [Procardia XL -] 30 mg PO DAILY #30 07/06/16 Aspirin 81 mg PO DAILY 05/30/17 Lisinopril [Prinivil] 20 mg PO DAILY 05/30/17 Risperidone [Risperdal -] 0.5 mg PO BID 05/30/17 Tamsulosin HCl [Flomax] 0.4 mg PO DAILY 05/30/17 - Diagnosis (1) Depression Status: Chronic Qualifiers: Depression Type: unspecified Qualified Code(s): F32.9 - Major depressive disorder, single episode, unspecified (2) Uses walker Status: Chronic (3) Opioid dependence with withdrawal Status: Acute (4) Asthma Status: Chronic Qualifiers: Asthma severity: mild Asthma persistence: intermittent Asthma complication type: uncomplicated Qualified Code(s): J45.20 - Mild intermittent asthma, uncomplicated (5) Essential hypertension Status: Chronic (6) Nicotine dependence Status: Chronic Qualifiers: Nicotine product type: cigarettes Substance use status: uncomplicated Qualified Code(s): F17.210 - Nicotine dependence, cigarettes, uncomplicated (7) Sickle cell anemia Status: Chronic Qualifiers: Sickle-cell associated disorders: with splenic sequestration Qualified Code (s): 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
== END 2017-06-04 09:18 | disposition home or self-care (01) | DRG 773 ==
LOC: YASAS 11:25 → Y3N 16:02
PROVIDERS: ADMIT Internal Medicine; ATTEND Internal Medicine
PROC: HZ2ZZZZ Detoxification Services for Substance Abuse Treatment (ICD-10-PCS; principal; 2017-05-30)
DX: F11.23 Opioid dependence with withdrawal (principal); F17.210 Nicotine dependence, cigarettes, uncomplicated; F31.9 Bipolar disorder, unspecified; F20.0 Paranoid schizophrenia; I10 Essential (primary) hypertension; D57.02 Hb-SS disease with splenic sequestration; E78.00 Pure hypercholesterolemia, unspecified; B18.2 Chronic viral hepatitis C; J45.909 Unspecified asthma, uncomplicated
CPT/HCPCS: 36415; 80053; 81003; 81015; 85027; 86593; 86803; 87389; 93005; 93010; J0735; J8999

== ENCOUNTER 2017-09-03 14:31 | Inpatient (IN) | payer OTHER ==
[2017-09-03 16:12] VITALS: BMI 24.9
--- NOTE | 2017-09-03 16:38 | HP ---
Admission [facility] Chief Complaint: Patient presents for Rehab services for Opiod dependence. Allergies/Adverse Reactions: Allergies Allergy/AdvReac Type Severity Reaction Status Date / Time No Known Allergies Allergy Verified 09/03/17 15:56 History of Present Illness: Patient presents for rehab services for opiod dependence. Patient started using/ sniffing Heroin at age 23. Uses one bundle daily. Last time used 3 days ago. Patient also smokes Marijuana 1x per week. Last time used one week ago. Uses up to 1 blunt daily. Pt has PMH HTN, SSA, Depression and Asthma. Denies SI/HI and suicide attempts. - Ebola screening Have you traveled outside of the country in the last 21 days: No Have you had contact with anyone from an Ebola affected area: No Have you been sick,other than usual withdrawal symptoms: No Do you have a fever: No - Review of Systems Constitutional: Night Sweats, Changes in sleep, Weight Stable EENT: reports: No Symptoms Reported Respiratory: reports: Cough Cardiac: reports: No Symptoms Reported GI: reports: Poor Fluid Intake : reports: No Symptoms Reported Musculoskeletal: reports: Back Pain, Joint Pain, Muscle Pain Integumentary: reports: No Symptoms Reported Neuro: reports: Unsteady Gait Endocrine: reports: No Symptoms Reported Hematology: reports: Anemia Psychiatric: reports: Orientated x3, Anxious, Depressed Patient History - Patient Medical History Hx Anemia: Yes (SICKLE CELL ANEMIA WITH CRISIS, 04/2016) Hx Asthma: Yes (on albuterol inhaler) Hx Chronic Obstructive Pulmonary Disease (COPD): No Hx Cancer: No Hx Cardiac Disorders: Yes (Murmur.) Hx Congestive Heart Failure: No Hx Hypertension: Yes (non compliance) Hx Hypercholesterolemia: Yes (On meds.) Hx Pacemaker: No HX Cerebrovascular Accident: No Hx Seizures: No Hx Dementia: No Hx Diabetes: No Hx Gastrointestinal Disorders: No Hx Liver Disease: Yes (Hepatitis C. Treated 2017) Hx Genitourinary Disorders: No Hx Sexually Transmitted Disorders: No Hx Renal Disease (ESRD): No Hx Thyroid Disease: No Hx Human Immunodeficiency Virus (HIV): No (Last Tested: 2016: NEGATIVE.) Hx Hepatitis C: Yes (Diagnosed 2017. Started treatment, did not complete treatment.) Hx Depression: Yes (On meds.) Hx Suicide Attempt: No (PATIENT DENIES CURRENT SI / HI.) Hx Bipolar Disorder: Yes (On meds.) Hx Schizophrenia: Yes (paranoiod schizophrenia) - Patient Surgical History Past Surgical History: Yes Hx Neurologic Surgery: No Hx Cataract Extraction: No Hx Cardiac Surgery: No Hx Lung Surgery: No Hx Breast Surgery: No Hx Breast Biopsy: No Hx Abdominal Surgery: Yes (SPLENECTOMY IN 1998) Hx Appendectomy: No Hx Cholecystectomy: No Hx Genitourinary Surgery: No Hx Section: No Hx Orthopedic Surgery: No Other Surgical History: DENIES. Anesthesia Reaction: No - PPD History Previous Implant?: Yes Documented Results: Negative w/proof Date: 06/01/17 Results: 0 mm PPD to be Administered?: No - Smoking Cessation Smoking history: Current every day smoker Have you smoked in the past 12 months: Yes Aproximately how many cigarettes per day: 5 If you are a former smoker, when did you quit?: 2 WEEKS AGO Cigars Per Day: 0 Hx Chewing Tobacco Use: No Initiated information on smoking cessation: Yes 'Breaking Loose' booklet given: 09/03/17 - Substance & Tx. History Hx Alcohol Use: No Hx Substance Use: Yes Substance Use Type: Heroin Hx Substance Use Treatment: Yes - Substances Abused Heroin Route: Inhalation Frequency: Daily Amount used: 10 bags Age of first use: 23 Date of Last Use: 08/31/17 Marijuana/Hashish Route: Smoking Frequency: 1-3 times last 30 days Amount used: 1 joint Age of first use: 18 Date of Last Use: 09/01/17 Family Disease History - Family Disease History Family Disease History: Heart Disease: Mother (HTN,?CAV,DRUG & ALCOHOL,) , Other: Father (no contact), Mother, Brother (no contact), Son (Sickle Cell Trait.) Admission Physical Exam [facility] - Vital Signs Vital Signs: Vital Signs - 24 hr 09/03/17 16:10 Temperature 98.2 F Pulse Rate 73 Respiratory 20 Rate Blood Pressure 202/137 - Physical General Appearance: Yes: Disheveled, Anxious HEENTM: Yes: EOMI, Hearing grossly Normal, Normocephalic, MIMI, Pharynx Normal Respiratory: Yes: Chest Non-Tender, No Respiratory Distress, No Accessory Muscle Use, Wheezing Neck: Yes: No masses,lesions,Nodules, Supple, Trachea in good position Breast: Yes: Breast Exam Deferred Cardiology: Yes: Regular Rhythm, Regular Rate, S1, S2 Abdominal: Yes: Normal Bowel Sounds, Non Tender, Soft Genitourinary: Yes: Within Normal Limits Back: Yes: Muscle Spasm Musculoskeletal: Yes: Back pain, Joint Stiffness, Muscle Pain Extremities: Yes: Normal Inspection, Non-Tender, Swelling Neurological: Yes: associate director II-XII NML intact, Fully Oriented, Alert, Depressed Affect Integumentary: Yes: Normal Color, Dry, Warm Lymphatic: Yes: Within Normal Limits - Diagnostic (1) Cannabis dependence Current Visit: Yes Status: Chronic (2) Asthma Current Visit: Yes Status: Chronic Qualifiers: Asthma severity: mild Asthma persistence: intermittent Asthma complication type: uncomplicated Qualified Code(s): J45.20 - Mild intermittent asthma, uncomplicated (3) Depression Current Visit: Yes Status: Suspected Qualifiers: Depression Type: unspecified Qualified Code(s): F32.9 - Major depressive disorder, single episode, unspecified (4) Essential hypertension Current Visit: Yes Status: Chronic (5) Hepatitis C Current Visit: No Status: Chronic Qualifiers: Viral hepatitis chronicity: chronic Hepatic coma status: without hepatic coma Qualified Code(s): B18.2 - Chronic viral hepatitis C (6) Hypercholesterolemia Current Visit: Yes Status: Chronic (7) Nicotine dependence Current Visit: Yes Status: Chronic Qualifiers: Nicotine product type: cigarettes Substance use status: uncomplicated Qualified Code(s): F17.210 - Nicotine dependence, cigarettes, uncomplicated (8) Opioid dependence Current Visit: No Status: Chronic Qualifiers: Substance use status: uncomplicated Qualified Code(s): F11.20 - Opioid dependence, uncomplicated Cleared for Admission [facility] - Detox or Rehab Claeared for Rehab Admission: Yes [facility] Breath Alcohol Content Breath Alcohol Content: 0 Urine Drug Screen - Results Drug Screen Negative: No Urine Drug Screen Results: THC-Marijuana Inpatient Rehab Admission - Initial Determination Are CD services needed?: Yes Free of communicable disease: Yes Not in need of hospitalization: Yes - Rehab Admission Criteria Previous failed treatment: Yes Poor recovery environment: Yes Comorbidities: Yes Lacks judgement: Yes Patient is meeting Inpatient Rehab admission criteria:: Yes
[2017-09-03] MEDS ORDERED: guaiFENesin/D-METHORPHAN HB 10 ML UNIT-DOSE CUPS PO PRN (16:46)
[2017-09-03] MEDS ORDERED: MAGNESIUM CITRATE 300 ML BOTTLE PO PRN (16:46)
[2017-09-03] MEDS ORDERED: LOPERAMIDE HCL 2 MG CAPSULE PO PRN (16:46)
[2017-09-03] MEDS ORDERED: MAGNESIUM HYDROX 2400MG/30ML ORAL SUSPENSION 30 ML CUP PO PRN (16:46)
[2017-09-03] MEDS ORDERED: IBUPROFEN 400 MG TABLET (FP) PO PRN (16:46)
[2017-09-03] MEDS ORDERED: NICOTINE POLACRILEX 2 MG GUM BC PRN (16:46)
[2017-09-03] MEDS ORDERED: MENTHOL/PHENOL 1 EACH UD MM PRN (16:46)
[2017-09-03] MEDS ORDERED: hydrOXYzine PAMOATE 50 MG CAPSULE (FP) PO PRN (16:46)
[2017-09-03] MEDS ORDERED: P-EPHED 60MG/TRIPROLIDI 2.5MG TABLET PO PRN (16:46)
[2017-09-03] MEDS ORDERED: MAG HYDROX/AL HYDROX/SIMETH 30 ML UNIT-DOSE CUP PO PRN (16:46)
[2017-09-03] MEDS ORDERED: ALBUTEROL SO4 18 GM HFA INHALER IH PRN (16:50)
[2017-09-03] MEDS ORDERED: cloNIDine HCL 0.1 MG TABLET PO ONE ×2 (17:15→18:45)
--- NOTE | 2017-09-03 18:36 | PN ---
S Progress Note Note: Notified by RN patient BP elevated to 200/100. Patient remains asymptomatic. Received stat dose of clonidine 0.1mg. Will add one more dose of Clonidine 0.1mg stat and continue to monitor clinically.
--- NOTE | 2017-09-03 20:33 | PN ---
[facility] Progress Note Note: As per nursing reports patient started on preadmission medications: Remeron 7.5mg po qhs Risperdal 0.5mg po bid Zoloft 50mg poqd
[2017-09-03] MEDS: THIAMINE HCL 100 MG TABLET (FP) PO SCH (23:13)
[2017-09-03] MEDS: MIRTAZAPINE 15 MG TABLET (FP) PO SCH (23:13)
[2017-09-03] MEDS: risperiDONE 1 MG TABLET (FP) PO SCH (23:13)
[2017-09-03 23:35] LABS: URINE APPEARANCE CLEAR; URINE BILIRUBIN NEGATIVE (<2.0 mg/dL); URINE BLOOD NEGATIVE (NEGATIVE); URINE COLOR YELLOW; URINE GLUCOSE (UA) NEGATIVE (NEGATIVE); URINE KETONE NEGATIVE (NEGATIVE); URINE LEUK ESTERASE NEGATIVE (NEGATIVE); URINE NITRITE NEGATIVE (NEGATIVE); URINE PROTEIN NEGATIVE (NEGATIVE); URINE UROBILINOGEN 4.0 E.U/dl mg/dL (0.2-1.0)
[2017-09-04] MEDS: amLODIPine BESYLATE 10 MG TABLET (FP) PO SCH (09:22)
[2017-09-04] MEDS: NIFEdipine E.R. 30 MG TABLET (FP) PO SCH (09:22)
[2017-09-04] MEDS: LISINOPRIL 20 MG TABLET (FP) PO SCH (09:22)
[2017-09-04] MEDS: ASPIRIN 81 MG CHEWABLE TABLETS PO SCH (09:22)
[2017-09-04] MEDS: PRENATAL VITAMINS W/ FOLIC ACID TABLET (FP) PO SCH (09:22)
[2017-09-04] MEDS: IBUPROFEN 400 MG TABLET (FP) PO PRN (09:23)
[2017-09-04] MEDS: risperiDONE 1 MG TABLET (FP) PO SCH ×2 (09:23→22:32)
[2017-09-04] MEDS: NICOTINE 21 MG/24 HOURS TOPICAL PATCH TD SCH (09:23)
[2017-09-04] MEDS: SERTRALINE HCL 50 MG TABLET (FP) PO SCH (09:23)
[2017-09-04] MEDS: TAMSULOSIN HCL 0.4 MG CAP.ER.24H (FP) PO SCH (09:23)
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
[2017-09-04 11:02] LABS: MEAN CELL VOLUME 96.7 fl (80-96); WHITE BLOOD COUNT 9.1 K/mm3 (4.0-10.0)
[2017-09-04 11:05] LABS: HEMATOCRIT 29.8 % (35.4-49); MCH 32.3 pg (25.7-33.7); MCHC 33.4 g/dl (32.0-35.9); MEAN PLT VOLUME 10.2 fl (7.5-11.1); PLATELET COUNT 342 K/MM3 (134-434); RBC 3.08 M/mm3 (4.00-5.60); RDW 22.2 % (11.9-15.9)
--- NOTE | 2017-09-04 12:01 | EKG ---
Test Reason : Blood Pressure : / mmHG Vent. Rate : 075 BPM Atrial Rate : 075 BPM P-R Int : 184 ms QRS Dur : 108 ms QT Int : 414 ms P-R-T Axes : 077 042 055 degrees QTc Int : 462 ms NORMAL SINUS RHYTHM POSSIBLE LEFT ATRIAL ENLARGEMENT BORDERLINE ECG WHEN COMPARED WITH ECG OF 30-MAY-2017 17:14, NO SIGNIFICANT CHANGE WAS FOUND Confirmed by KARLEY TERRY MD ([id number]) on 09/04/2017 12:00:53 PM Referred By: Confirmed By:KARLEY TERRY MD
[2017-09-04 12:07] LABS: CHLORIDE 110 mmol/L (98-107); SODIUM 143 mmol/L (136-145)
[2017-09-04 12:26] LABS: ALBUMIN 4.2 g/dl (3.4-5.0); ALK PHOS 116 U/L (45-117); ANION GAP 9 (8-16); BILIRUBIN,TOTAL 2.9 mg/dL (0.2-1.0); BLOOD UREA NITROGEN 11 mg/dL (7-18); CALCIUM 8.9 mg/dL (8.5-10.1); CO2 24 mmol/L (21-32); CREATININE 0.9 mg/dL (0.7-1.3); GLUCOSE,RANDOM 133 mg/dL (74-106); SGPT/ALT 22 U/L (12-78); TOT PROT 7.1 g/dl (6.4-8.2)
[2017-09-04 12:27] LABS: POTASSIUM 4.4 mmol/L (3.5-5.1); SGOT/AST 26 U/L (15-37)
[2017-09-04] MEDS: THIAMINE HCL 100 MG TABLET (FP) PO SCH (22:32)
[2017-09-04] MEDS: MIRTAZAPINE 15 MG TABLET (FP) PO SCH (22:32)
[2017-09-05] MEDS: IBUPROFEN 400 MG TABLET (FP) PO PRN (06:09)
[2017-09-05] MEDS: LISINOPRIL 20 MG TABLET (FP) PO SCH (10:23)
[2017-09-05] MEDS: PRENATAL VITAMINS W/ FOLIC ACID TABLET (FP) PO SCH (10:23)
[2017-09-05] MEDS: NIFEdipine E.R. 30 MG TABLET (FP) PO SCH (10:23)
[2017-09-05] MEDS: SERTRALINE HCL 50 MG TABLET (FP) PO SCH (10:23)
[2017-09-05] MEDS: amLODIPine BESYLATE 10 MG TABLET (FP) PO SCH (10:23)
[2017-09-05] MEDS: ASPIRIN 81 MG CHEWABLE TABLETS PO SCH (10:23)
[2017-09-05] MEDS: ACETAMINOPHEN 325 MG TABLET (FP) PO PRN ×2 (10:25→22:36)
[2017-09-05] MEDS: NICOTINE 21 MG/24 HOURS TOPICAL PATCH TD SCH (10:25)
[2017-09-05] MEDS: TAMSULOSIN HCL 0.4 MG CAP.ER.24H (FP) PO SCH (10:25)
[2017-09-05] MEDS: risperiDONE 1 MG TABLET (FP) PO SCH ×2 (10:28→22:35)
--- NOTE | 2017-09-05 11:08 | PN ---
[facility] Progress Note Note: Patient presents with elevated BP. Denies chest pain, dizziness and SOB. A/P Vital Signs Temperature 98 F 09/05/17 06:54 Pulse Rate 84 09/05/17 06:54 Respiratory Rate 18 09/05/17 06:54 Blood Pressure 154/95 09/05/17 06:54 O2 Sat by Pulse Oximetry (%) Laboratory Tests 09/03/17 09/04/17 09/04/17 23:20 07:00 07:00 WBC 9.1 RBC 3.08 L D Hgb 10.0 L D Hct 29.8 L D MCV 96.7 H MCH 32.3 MCHC 33.4 RDW 22.2 H Plt Count 342 MPV 10.2 Sodium 143 Potassium 4.4 Chloride 110 H Carbon Dioxide 24 Anion Gap 9 BUN 11 D Creatinine 0.9 Creat Clearance w eGFR > 60 Random Glucose 133 H D Calcium 8.9 Total Bilirubin 2.9 H D AST 26 ALT 22 Alkaline Phosphatase 116 Total Protein 7.1 Albumin 4.2 Urine Color Yellow Urine Appearance Clear Urine pH 6.0 Ur Specific [place] 1.011 Urine Protein Negative Urine Glucose (UA) Negative Urine Ketones Negative Urine Blood Negative Urine Nitrite Negative Urine Bilirubin Negative Urine Urobilinogen 4.0 e.u/dl Ur Leukocyte Esterase Negative RPR Titer 09/04/17 07:00 WBC RBC Hgb Hct MCV MCH MCHC RDW Plt Count MPV Sodium Potassium Chloride Carbon Dioxide Anion Gap BUN Creatinine Creat Clearance w eGFR Random Glucose Calcium Total Bilirubin AST ALT Alkaline Phosphatase Total Protein Albumin Urine Color Urine Appearance Urine pH Ur Specific [place] Urine Protein Urine Glucose (UA) Urine Ketones Urine Blood Urine Nitrite Urine Bilirubin Urine Urobilinogen Ur Leukocyte Esterase RPR Titer Nonreactive Obj: General: alert and oriented x 3. In no acute distress. Skin: warm and dry, intact Ext: + pain to knees, level 4-5/10, dull ache. Mild swelling. A/P: HTN: Elevated Knee pain Continue medication add clonidine 0.2mg BID increase oral fluids Lidocaine patch to knees ordered Continue to monitor clinically
[2017-09-05] MEDS: cloNIDine HCL 0.1 MG TABLET PO SCH (22:34)
[2017-09-05] MEDS: LIDOCAINE PATCH REMOVAL MC SCH (22:35)
[2017-09-05] MEDS: MIRTAZAPINE 15 MG TABLET (FP) PO SCH (22:35)
[2017-09-05] MEDS: THIAMINE HCL 100 MG TABLET (FP) PO SCH (22:36)
[2017-09-06] MEDS: LISINOPRIL 20 MG TABLET (FP) PO SCH (09:20)
[2017-09-06] MEDS: NICOTINE 21 MG/24 HOURS TOPICAL PATCH TD SCH (09:20)
[2017-09-06] MEDS: ASPIRIN 81 MG CHEWABLE TABLETS PO SCH (09:20)
[2017-09-06] MEDS: NIFEdipine E.R. 30 MG TABLET (FP) PO SCH (09:20)
[2017-09-06] MEDS: SERTRALINE HCL 50 MG TABLET (FP) PO SCH (09:20)
[2017-09-06] MEDS: amLODIPine BESYLATE 10 MG TABLET (FP) PO SCH (09:20)
[2017-09-06] MEDS: risperiDONE 1 MG TABLET (FP) PO SCH ×2 (09:20→21:53)
[2017-09-06] MEDS: cloNIDine HCL 0.1 MG TABLET PO SCH ×2 (09:20→21:54)
[2017-09-06] MEDS: TAMSULOSIN HCL 0.4 MG CAP.ER.24H (FP) PO SCH (09:20)
[2017-09-06] MEDS: PRENATAL VITAMINS W/ FOLIC ACID TABLET (FP) PO SCH (09:20)
[2017-09-06] MEDS: LIDOCAINE 5% TOPICAL PATCH TP SCH (11:00)
[2017-09-06] MEDS: IBUPROFEN 400 MG TABLET (FP) PO PRN (20:05)
[2017-09-06] MEDS: MIRTAZAPINE 15 MG TABLET (FP) PO SCH (21:52)
[2017-09-06] MEDS: THIAMINE HCL 100 MG TABLET (FP) PO SCH (21:54)
[2017-09-06] MEDS: LIDOCAINE PATCH REMOVAL MC SCH (21:55)
[2017-09-06] MEDS: MELATONIN 5 MG TABLETS PO PRN (21:56)
[2017-09-07] MEDS: TAMSULOSIN HCL 0.4 MG CAP.ER.24H (FP) PO SCH (09:42)
[2017-09-07] MEDS: LISINOPRIL 20 MG TABLET (FP) PO SCH (09:42)
[2017-09-07] MEDS: amLODIPine BESYLATE 10 MG TABLET (FP) PO SCH (09:42)
[2017-09-07] MEDS: PRENATAL VITAMINS W/ FOLIC ACID TABLET (FP) PO SCH (09:42)
[2017-09-07] MEDS: NICOTINE 21 MG/24 HOURS TOPICAL PATCH TD SCH (09:42)
[2017-09-07] MEDS: NIFEdipine E.R. 30 MG TABLET (FP) PO SCH (09:42)
[2017-09-07] MEDS: cloNIDine HCL 0.1 MG TABLET PO SCH ×2 (09:42→22:05)
[2017-09-07] MEDS: ASPIRIN 81 MG CHEWABLE TABLETS PO SCH (09:42)
[2017-09-07] MEDS: risperiDONE 1 MG TABLET (FP) PO SCH ×2 (09:42→22:07)
[2017-09-07] MEDS: SERTRALINE HCL 50 MG TABLET (FP) PO SCH (09:42)
[2017-09-07] MEDS: IBUPROFEN 400 MG TABLET (FP) PO PRN ×2 (09:43→17:51)
[2017-09-07] MEDS: LIDOCAINE 5% TOPICAL PATCH TP SCH (10:55)
[2017-09-07] MEDS: MIRTAZAPINE 15 MG TABLET (FP) PO SCH (22:05)
[2017-09-07] MEDS: THIAMINE HCL 100 MG TABLET (FP) PO SCH (22:05)
[2017-09-07] MEDS: MELATONIN 5 MG TABLETS PO PRN (22:09)
[2017-09-07] MEDS: LIDOCAINE PATCH REMOVAL MC SCH (23:31)
[2017-09-08] MEDS: cloNIDine HCL 0.1 MG TABLET PO SCH ×2 (10:26→22:20)
[2017-09-08] MEDS: SERTRALINE HCL 50 MG TABLET (FP) PO SCH (10:26)
[2017-09-08] MEDS: LISINOPRIL 20 MG TABLET (FP) PO SCH (10:26)
[2017-09-08] MEDS: ASPIRIN 81 MG CHEWABLE TABLETS PO SCH (10:26)
[2017-09-08] MEDS: PRENATAL VITAMINS W/ FOLIC ACID TABLET (FP) PO SCH (10:26)
[2017-09-08] MEDS: amLODIPine BESYLATE 10 MG TABLET (FP) PO SCH (10:26)
[2017-09-08] MEDS: NIFEdipine E.R. 30 MG TABLET (FP) PO SCH (10:27)
[2017-09-08] MEDS: risperiDONE 1 MG TABLET (FP) PO SCH ×2 (10:27→22:21)
[2017-09-08] MEDS: LIDOCAINE 5% TOPICAL PATCH TP SCH (10:27)
[2017-09-08] MEDS: TAMSULOSIN HCL 0.4 MG CAP.ER.24H (FP) PO SCH (10:27)
[2017-09-08] MEDS: NICOTINE 21 MG/24 HOURS TOPICAL PATCH TD SCH (10:27)
[2017-09-08] MEDS: IBUPROFEN 400 MG TABLET (FP) PO PRN (18:39)
[2017-09-08] MEDS: LIDOCAINE PATCH REMOVAL MC SCH (22:21)
[2017-09-08] MEDS: THIAMINE HCL 100 MG TABLET (FP) PO SCH (23:32)
[2017-09-08] MEDS: MIRTAZAPINE 15 MG TABLET (FP) PO SCH (23:32)
[2017-09-09] MEDS: PRENATAL VITAMINS W/ FOLIC ACID TABLET (FP) PO SCH (10:14)
[2017-09-09] MEDS: TAMSULOSIN HCL 0.4 MG CAP.ER.24H (FP) PO SCH (10:14)
[2017-09-09] MEDS: LISINOPRIL 20 MG TABLET (FP) PO SCH (10:14)
[2017-09-09] MEDS: SERTRALINE HCL 50 MG TABLET (FP) PO SCH (10:14)
[2017-09-09] MEDS: amLODIPine BESYLATE 10 MG TABLET (FP) PO SCH (10:14)
[2017-09-09] MEDS: ASPIRIN 81 MG CHEWABLE TABLETS PO SCH (10:14)
[2017-09-09] MEDS: NIFEdipine E.R. 30 MG TABLET (FP) PO SCH (10:14)
[2017-09-09] MEDS: cloNIDine HCL 0.1 MG TABLET PO SCH ×2 (10:15→22:29)
[2017-09-09] MEDS: LIDOCAINE 5% TOPICAL PATCH TP SCH (10:15)
[2017-09-09] MEDS: NICOTINE 21 MG/24 HOURS TOPICAL PATCH TD SCH (10:15)
[2017-09-09] MEDS: IBUPROFEN 400 MG TABLET (FP) PO PRN ×2 (10:16→22:37)
[2017-09-09] MEDS: risperiDONE 1 MG TABLET (FP) PO SCH ×2 (10:18→22:26)
--- NOTE | 2017-09-09 15:33 | PN ---
[facility] Progress Note Note: Patient reports hx of Sickle cell disease. Patient c/o of bilateral shoulder and need pain. As per patient he was suppose to have orthopedic surgery on the both knees anf right shoulder but has been unable to as result of his drug use. Vital Signs Temperature 98 F 09/09/17 06:54 Pulse Rate 60 09/09/17 06:54 Respiratory Rate 18 09/09/17 06:54 Blood Pressure 148/82 09/09/17 06:54 O2 Sat by Pulse Oximetry (%) Laboratory Last Values WBC 9.1 K/mm3 (4.0-10.0) 09/04/17 07:00 RBC 3.08 M/mm3 (4.00-5.60) L D 09/04/17 07:00 Hgb 10.0 GM/dL (11.7-16.9) L D 09/04/17 07:00 Hct 29.8 % (35.4-49) L D 09/04/17 07:00 MCV 96.7 fl (80-96) H 09/04/17 07:00 MCH 32.3 pg (25.7-33.7) 09/04/17 07:00 MCHC 33.4 g/dl (32.0-35.9) 09/04/17 07:00 RDW 22.2 % (11.9-15.9) H 09/04/17 07:00 Plt Count 342 K/MM3 (134-434) 09/04/17 07:00 MPV 10.2 fl (7.5-11.1) 09/04/17 07:00 Sodium 143 mmol/L (136-145) 09/04/17 07:00 Potassium 4.4 mmol/L (3.5-5.1) 09/04/17 07:00 Chloride 110 mmol/L (98-107) H 09/04/17 07:00 Carbon Dioxide 24 mmol/L (21-32) 09/04/17 07:00 Anion Gap 9 (8-16) 09/04/17 07:00 BUN 11 mg/dL (7-18) D 09/04/17 07:00 Creatinine 0.9 mg/dL (0.7-1.3) 09/04/17 07:00 Creat Clearance w eGFR > 60 (>60) 05/17/18 07:00 Random Glucose 133 mg/dL (74-106) H D 09/04/17 07:00 Calcium 8.9 mg/dL (8.5-10.1) 09/04/17 07:00 Total Bilirubin 2.9 mg/dL (0.2-1.0) H D 09/04/17 07:00 AST 26 U/L (15-37) 09/04/17 07:00 ALT 22 U/L (12-78) 09/04/17 07:00 Alkaline Phosphatase 116 U/L (45-117) 09/04/17 07:00 Total Protein 7.1 g/dl (6.4-8.2) 09/04/17 07:00 Albumin 4.2 g/dl (3.4-5.0) 09/04/17 07:00 Urine Color Yellow 09/03/17 23:20 Urine Appearance Clear 09/03/17 23:20 Urine pH 6.0 (5.0-8.0) 09/03/17 23:20 Ur Specific [place] 1.011 (1.001-1.035) 09/03/17 23:20 Urine Protein Negative (NEGATIVE) 09/03/17 23:20 Urine Glucose (UA) Negative (NEGATIVE) 09/03/17 23:20 Urine Ketones Negative (NEGATIVE) 09/03/17 23:20 Urine Blood Negative (NEGATIVE) 09/03/17 23:20 Urine Nitrite Negative (NEGATIVE) 09/03/17 23:20 Urine Bilirubin Negative (<2.0 mg/dL) 09/03/17 23:20 Urine Urobilinogen 4.0 e.u/dl mg/dL (0.2-1.0) 09/03/17 23:20 Ur Leukocyte Esterase Negative (NEGATIVE) 09/03/17 23:20 RPR Titer Nonreactive (NONREACTIVE) 09/04/17 07:00 A/P Patient AOx3 in no apparent distress no adventitious breath sounds Skin intact , + dryness +pain b/l knees and b/l shoulder, chronic limited ROM on right shoulder ambulates with rolling walker, gait unsteady AO bl knees and shoulders Plan: Continue ibuprofen 800mg TID PRN lidocaine patch to both knees bengay to both shoulders wheelchair for mobility increase fluids fall precautions continue to monitor Patient advise to follow up upon discharge with biological sciences instructor and ortho
[2017-09-09] MEDS: METHYL SALICYLATE/MENTHOL OINT 30 GM TUBE TP SCH (22:25)
[2017-09-09] MEDS: THIAMINE HCL 100 MG TABLET (FP) PO SCH (22:25)
[2017-09-09] MEDS: LIDOCAINE PATCH REMOVAL MC SCH (22:26)
[2017-09-09] MEDS: MIRTAZAPINE 15 MG TABLET (FP) PO SCH (22:26)
[2017-09-09] MEDS: MELATONIN 5 MG TABLETS PO PRN (22:28)
[2017-09-10] MEDS: amLODIPine BESYLATE 10 MG TABLET (FP) PO SCH (10:39)
[2017-09-10] MEDS: NIFEdipine E.R. 30 MG TABLET (FP) PO SCH (10:39)
[2017-09-10] MEDS: IBUPROFEN 400 MG TABLET (FP) PO PRN ×2 (10:39→19:05)
[2017-09-10] MEDS: ASPIRIN 81 MG CHEWABLE TABLETS PO SCH (10:39)
[2017-09-10] MEDS: PRENATAL VITAMINS W/ FOLIC ACID TABLET (FP) PO SCH (10:39)
[2017-09-10] MEDS: SERTRALINE HCL 50 MG TABLET (FP) PO SCH (10:39)
[2017-09-10] MEDS: LISINOPRIL 20 MG TABLET (FP) PO SCH (10:39)
[2017-09-10] MEDS: cloNIDine HCL 0.1 MG TABLET PO SCH ×2 (10:40→21:41)
[2017-09-10] MEDS: TAMSULOSIN HCL 0.4 MG CAP.ER.24H (FP) PO SCH (10:40)
[2017-09-10] MEDS: METHYL SALICYLATE/MENTHOL OINT 30 GM TUBE TP SCH ×2 (10:42→21:40)
[2017-09-10] MEDS: risperiDONE 1 MG TABLET (FP) PO SCH ×2 (10:42→21:42)
[2017-09-10] MEDS: LIDOCAINE 5% TOPICAL PATCH TP SCH (10:42)
[2017-09-10] MEDS: NICOTINE 21 MG/24 HOURS TOPICAL PATCH TD SCH (10:42)
--- NOTE | 2017-09-10 11:53 | PN ---
Psychiatric Progress Note Vital Signs: Vital Signs Period Temp Pulse Resp BP Sys/Villatoro Pulse Ox Last 24 Hr 98.1 F 68-80 -18 135-143/69-78 Date of Session: 09/10/17 Chief Complaint:: Follow up HPI: Patient addressing Opioid and Cannabis Dependencecomorbid with Nicotine Dependence, Paranoid Schizophrenia, Substance-Induced Mood Disorder and Substance-Induced Sleep Disorder ROS: Asthma, HTN, HLD, Hep C, Sickle Cell anemia Current Medications: Active Medications Generic Name Dose Route Start Last Admin Trade Name Freq PRN Reason Stop Dose Admin Acetaminophen 650 mg 09/03/17 16:46 09/05/17 22:36 Tylenol - PO 650 mg Q4H PRN Administration FEVER Al Hydroxide/Mg Hydroxide 30 ml 09/03/17 16:46 Mylanta Oral Suspension - PO Q6H PRN DYSPEPSIA Albuterol Sulfate 2 puff 09/03/17 16:50 Ventolin Hfa Inhaler - IH Q4H PRN SHORT OF BREATH/WHEEZING Amlodipine Besylate 10 mg 09/04/17 10:00 09/10/17 10:39 Norvasc - PO 10 mg DAILY ALEX Administration Aspirin 81 mg 09/04/17 10:00 09/10/17 10:39 Asa - PO 81 mg DAILY ALEX Administration Clonidine 0.2 mg 09/05/17 22:00 09/10/17 10:40 Catapres - PO 0.2 mg BID ALEX Administration Eucalyptus/Menthol/Phenol/Sorbitol 1 each 09/03/17 16:46 Cepastat Lozenge - MM Q4H PRN SORE THROAT Guaifenesin 10 ml 09/03/17 16:46 Robitussin Dm - PO Q6H PRN COUGH Hydroxyzine Pamoate 50 mg 09/03/17 16:46 Vistaril - PO Q4H PRN AGITATION Ibuprofen 800 mg 09/03/17 16:50 09/10/17 10:39 Motrin - PO 800 mg Q8H PRN Administration PAIN LEVEL 6-10 Lidocaine 2 patch 09/06/17 10:00 09/10/17 10:42 Lidoderm Patch - TP 2 patch DAILY ALEX Administration Lisinopril 20 mg 09/04/17 10:00 09/10/17 10:39 Prinivil PO 20 mg DAILY ALEX Administration Loperamide HCl 4 mg 09/03/17 16:46 Imodium - PO Q6H PRN DIARRHEA Magnesium Citrate 300 ml 09/03/17 16:46 Citroma - PO Q48H PRN CONSTIPATION Magnesium Hydroxide 30 ml 09/03/17 16:46 Milk Of Magnesia - PO DAILY PRN CONSTIPATION Melatonin 5 mg 09/03/17 22:00 09/09/17 22:28 Melatonin PO 5 mg HS PRN Administration INSOMNIA Methyl Salicylate 1 applic 09/09/17 22:00 09/10/17 10:42 Haile-Burns - TP Not Given BID ALEX Mirtazapine 7.5 mg 09/03/17 22:00 09/09/17 22:26 Remeron - PO Not Given HS ALEX Miscellaneous 2 each 09/05/17 22:00 09/09/17 22:26 Lidoderm Patch Removal MC 2 each DAILY@2200 ALEX Administration Nicotine 21 mg 09/04/17 10:00 09/10/17 10:42 Nicoderm Patch - TD 21 mg DAILY ALEX Administration Nicotine Polacrilex 2 mg 09/03/17 16:46 Nicorette Gum - BC Q2H PRN NICOTINE REPLACEMENT RX Nifedipine 30 mg 09/04/17 10:00 09/10/17 10:39 Procardia Xl - PO 30 mg DAILY ALEX Administration Multivit/Folic Acid/Iron 1 tab 09/04/17 10:00 09/10/17 10:39 Vitamins (Sjr) - PO 1 tab DAILY ALEX Administration Pseudoephedrine/Triprolidine 1 combo 09/03/17 16:46 Actifed - PO TID PRN NASAL CONGESTION Risperidone 0.5 mg 09/03/17 22:00 09/10/17 10:42 Risperdal - PO 0.5 mg BID ALEX Administration Sertraline HCl 50 mg 09/04/17 10:00 09/10/17 10:39 Zoloft - PO 50 mg DAILY ALEX Administration Tamsulosin HCl 0.4 mg 09/04/17 10:00 09/10/17 10:40 Flomax - PO 0.4 mg DAILY ALEX Administration Thiamine HCl 100 mg 09/03/17 22:00 09/09/17 22:25 Vitamin B1 - PO 100 mg HS ALEX Administration Medication(s) Change(s): Discontinue Risperdal Current Side Effect: No Lab tests ordered: Yes Lab tests reviewed: Yes Provider note:: Requested by nursing staff to talk to patient for refusing to take his psychotropic medications. He is currently on Zoloft 50 mg po daily, Riaperdal 0.5 mg o BID and Remeron 7.5 mg po HS. Discussed with patient his reason to refuse medications. Claims he was diagnosed with Schizophrenia at 15 but he does believe he suffers from it any longer. So he does not want to continue taking Risperdal but would go on taking Zoloft and Remeron Total face to face time:: 25 Psychiatric Treatment Plan - Problem List (1) Opioid dependence Current Visit: Yes Qualifiers: Substance use status: uncomplicated Qualified Code(s): F11.20 - Opioid dependence, uncomplicated (2) Cannabis dependence Current Visit: Yes (3) Nicotine dependence Current Visit: Yes Qualifiers: Nicotine product type: cigarettes Substance use status: uncomplicated Qualified Code(s): F17.210 - Nicotine dependence, cigarettes, uncomplicated (4) Paranoid schizophrenia Current Visit: No (5) Substance induced mood disorder Current Visit: Yes (6) Substance-induced sleep disorder Current Visit: Yes (7) Asthma Current Visit: Yes Qualifiers: Asthma severity: mild Asthma persistence: intermittent Asthma complication type: uncomplicated Qualified Code(s): J45.20 - Mild intermittent asthma, uncomplicated (8) Essential hypertension Current Visit: Yes (9) Hypercholesterolemia Current Visit: Yes (10) Hepatitis C Current Visit: No Qualifiers: Viral hepatitis chronicity: chronic Hepatic coma status: without hepatic coma Qualified Code(s): B18.2 - Chronic viral hepatitis C (11) Severe anemia Current Visit: No (12) Sickle cell anemia Current Visit: No Qualifiers: Sickle-cell associated disorders: with splenic sequestration Qualified Code (s): 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 2) Continue Zoloft and Remeron. 3) Monitor for evidence of psychotic decompensation
[2017-09-10] MEDS: THIAMINE HCL 100 MG TABLET (FP) PO SCH (21:41)
[2017-09-10] MEDS: MELATONIN 5 MG TABLETS PO PRN (21:41)
[2017-09-10] MEDS: LIDOCAINE PATCH REMOVAL MC SCH (21:42)
[2017-09-10] MEDS: MIRTAZAPINE 15 MG TABLET (FP) PO SCH (21:42)
[2017-09-11] MEDS: cloNIDine HCL 0.1 MG TABLET PO SCH ×2 (09:53→21:33)
[2017-09-11] MEDS: NICOTINE 21 MG/24 HOURS TOPICAL PATCH TD SCH (09:53)
[2017-09-11] MEDS: NIFEdipine E.R. 30 MG TABLET (FP) PO SCH (09:53)
[2017-09-11] MEDS: SERTRALINE HCL 50 MG TABLET (FP) PO SCH (09:53)
[2017-09-11] MEDS: TAMSULOSIN HCL 0.4 MG CAP.ER.24H (FP) PO SCH (09:53)
[2017-09-11] MEDS: LIDOCAINE 5% TOPICAL PATCH TP SCH (09:54)
[2017-09-11] MEDS: METHYL SALICYLATE/MENTHOL OINT 30 GM TUBE TP SCH ×2 (09:54→21:33)
[2017-09-11] MEDS: LISINOPRIL 20 MG TABLET (FP) PO SCH (09:54)
[2017-09-11] MEDS: ASPIRIN 81 MG CHEWABLE TABLETS PO SCH (09:54)
[2017-09-11] MEDS: amLODIPine BESYLATE 10 MG TABLET (FP) PO SCH (09:54)
[2017-09-11] MEDS: PRENATAL VITAMINS W/ FOLIC ACID TABLET (FP) PO SCH (09:54)
[2017-09-11] MEDS: risperiDONE 1 MG TABLET (FP) PO SCH ×2 (09:55→21:32)
[2017-09-11] MEDS: IBUPROFEN 400 MG TABLET (FP) PO PRN (19:57)
[2017-09-11] MEDS: MIRTAZAPINE 15 MG TABLET (FP) PO SCH (21:32)
[2017-09-11] MEDS: LIDOCAINE PATCH REMOVAL MC SCH (21:33)
[2017-09-11] MEDS: THIAMINE HCL 100 MG TABLET (FP) PO SCH (21:33)
[2017-09-11] MEDS: MELATONIN 5 MG TABLETS PO PRN (21:35)
[2017-09-12] MEDS: ASPIRIN 81 MG CHEWABLE TABLETS PO SCH (10:02)
[2017-09-12] MEDS: cloNIDine HCL 0.1 MG TABLET PO SCH ×2 (10:02→21:52)
[2017-09-12] MEDS: TAMSULOSIN HCL 0.4 MG CAP.ER.24H (FP) PO SCH (10:03)
[2017-09-12] MEDS: PRENATAL VITAMINS W/ FOLIC ACID TABLET (FP) PO SCH (10:03)
[2017-09-12] MEDS: NIFEdipine E.R. 30 MG TABLET (FP) PO SCH (10:03)
[2017-09-12] MEDS: NICOTINE 21 MG/24 HOURS TOPICAL PATCH TD SCH (10:03)
[2017-09-12] MEDS: LISINOPRIL 20 MG TABLET (FP) PO SCH (10:03)
[2017-09-12] MEDS: amLODIPine BESYLATE 10 MG TABLET (FP) PO SCH (10:03)
[2017-09-12] MEDS: LIDOCAINE 5% TOPICAL PATCH TP SCH (10:04)
[2017-09-12] MEDS: METHYL SALICYLATE/MENTHOL OINT 30 GM TUBE TP SCH ×2 (10:04→21:52)
[2017-09-12] MEDS: SERTRALINE HCL 50 MG TABLET (FP) PO SCH (10:05)
[2017-09-12] MEDS: IBUPROFEN 400 MG TABLET (FP) PO PRN ×2 (10:05→17:37)
[2017-09-12] MEDS: risperiDONE 1 MG TABLET (FP) PO SCH ×2 (10:05→21:54)
[2017-09-12] MEDS: THIAMINE HCL 100 MG TABLET (FP) PO SCH (21:52)
[2017-09-12] MEDS: LIDOCAINE PATCH REMOVAL MC SCH (21:52)
[2017-09-12] MEDS: MELATONIN 5 MG TABLETS PO PRN (21:53)
[2017-09-12] MEDS: MIRTAZAPINE 15 MG TABLET (FP) PO SCH (21:54)
[2017-09-13] MEDS: amLODIPine BESYLATE 10 MG TABLET (FP) PO SCH (09:48)
[2017-09-13] MEDS: NIFEdipine E.R. 30 MG TABLET (FP) PO SCH (09:48)
[2017-09-13] MEDS: TAMSULOSIN HCL 0.4 MG CAP.ER.24H (FP) PO SCH (09:48)
[2017-09-13] MEDS: LISINOPRIL 20 MG TABLET (FP) PO SCH (09:48)
[2017-09-13] MEDS: ASPIRIN 81 MG CHEWABLE TABLETS PO SCH (09:48)
[2017-09-13] MEDS: cloNIDine HCL 0.1 MG TABLET PO SCH ×2 (09:48→21:56)
[2017-09-13] MEDS: PRENATAL VITAMINS W/ FOLIC ACID TABLET (FP) PO SCH (09:48)
[2017-09-13] MEDS: SERTRALINE HCL 50 MG TABLET (FP) PO SCH (09:49)
[2017-09-13] MEDS: METHYL SALICYLATE/MENTHOL OINT 30 GM TUBE TP SCH ×2 (09:49→21:58)
[2017-09-13] MEDS: LIDOCAINE 5% TOPICAL PATCH TP SCH (09:49)
[2017-09-13] MEDS: risperiDONE 1 MG TABLET (FP) PO SCH ×2 (09:49→21:58)
[2017-09-13] MEDS: NICOTINE 21 MG/24 HOURS TOPICAL PATCH TD SCH (09:49)
[2017-09-13] MEDS: IBUPROFEN 400 MG TABLET (FP) PO PRN (09:49)
[2017-09-13] MEDS: MIRTAZAPINE 15 MG TABLET (FP) PO SCH (21:58)
[2017-09-13] MEDS: LIDOCAINE PATCH REMOVAL MC SCH (21:58)
[2017-09-13] MEDS: THIAMINE HCL 100 MG TABLET (FP) PO SCH (21:59)
[2017-09-14] MEDS: IBUPROFEN 400 MG TABLET (FP) PO PRN ×3 (00:27→21:17)
[2017-09-14] MEDS: cloNIDine HCL 0.1 MG TABLET PO SCH ×2 (10:04→21:16)
[2017-09-14] MEDS: LISINOPRIL 20 MG TABLET (FP) PO SCH (10:04)
[2017-09-14] MEDS: PRENATAL VITAMINS W/ FOLIC ACID TABLET (FP) PO SCH (10:04)
[2017-09-14] MEDS: amLODIPine BESYLATE 10 MG TABLET (FP) PO SCH (10:04)
[2017-09-14] MEDS: NIFEdipine E.R. 30 MG TABLET (FP) PO SCH (10:04)
[2017-09-14] MEDS: LIDOCAINE 5% TOPICAL PATCH TP SCH (10:04)
[2017-09-14] MEDS: SERTRALINE HCL 50 MG TABLET (FP) PO SCH (10:05)
[2017-09-14] MEDS: NICOTINE 21 MG/24 HOURS TOPICAL PATCH TD SCH (10:05)
[2017-09-14] MEDS: risperiDONE 1 MG TABLET (FP) PO SCH ×2 (10:05→21:18)
[2017-09-14] MEDS: METHYL SALICYLATE/MENTHOL OINT 30 GM TUBE TP SCH ×2 (10:05→21:56)
[2017-09-14] MEDS: TAMSULOSIN HCL 0.4 MG CAP.ER.24H (FP) PO SCH (10:06)
[2017-09-14] MEDS: ASPIRIN 81 MG CHEWABLE TABLETS PO SCH (10:06)
[2017-09-14] MEDS: ACETAMINOPHEN 325 MG TABLET (FP) PO PRN (15:45)
[2017-09-14] MEDS: LIDOCAINE PATCH REMOVAL MC SCH (21:17)
[2017-09-14] MEDS: MIRTAZAPINE 15 MG TABLET (FP) PO SCH (21:18)
[2017-09-14] MEDS: THIAMINE HCL 100 MG TABLET (FP) PO SCH (21:18)
[2017-09-15] MEDS: ACETAMINOPHEN 325 MG TABLET (FP) PO PRN (00:52)
[2017-09-15] MEDS: IBUPROFEN 400 MG TABLET (FP) PO PRN ×3 (06:41→23:45)
[2017-09-15] MEDS: LIDOCAINE 5% TOPICAL PATCH TP SCH (10:00)
[2017-09-15] MEDS: ASPIRIN 81 MG CHEWABLE TABLETS PO SCH (10:01)
[2017-09-15] MEDS: TAMSULOSIN HCL 0.4 MG CAP.ER.24H (FP) PO SCH (10:01)
[2017-09-15] MEDS: NIFEdipine E.R. 30 MG TABLET (FP) PO SCH (10:01)
[2017-09-15] MEDS: PRENATAL VITAMINS W/ FOLIC ACID TABLET (FP) PO SCH (10:01)
[2017-09-15] MEDS: LISINOPRIL 20 MG TABLET (FP) PO SCH (10:01)
[2017-09-15] MEDS: NICOTINE 21 MG/24 HOURS TOPICAL PATCH TD SCH (10:01)
[2017-09-15] MEDS: cloNIDine HCL 0.1 MG TABLET PO SCH ×2 (10:01→22:08)
[2017-09-15] MEDS: risperiDONE 1 MG TABLET (FP) PO SCH ×2 (10:02→22:12)
[2017-09-15] MEDS: SERTRALINE HCL 50 MG TABLET (FP) PO SCH (10:02)
[2017-09-15] MEDS: METHYL SALICYLATE/MENTHOL OINT 30 GM TUBE TP SCH ×2 (10:55→22:23)
[2017-09-15] MEDS: amLODIPine BESYLATE 10 MG TABLET (FP) PO SCH (11:38)
[2017-09-15] MEDS ORDERED: PT OWN MED DRAWER 7, Y5N ONE ×3 (11:40→23:58)
--- NOTE | 2017-09-15 14:14 | PN ---
S Progress Note Note: c/o of generalized joint pain. No CP, SOB or parethesia reported. Vital Signs Temperature 98 F 09/14/17 06:35 Pulse Rate 84 09/15/17 10:00 Respiratory Rate 18 09/15/17 10:00 Blood Pressure 141/70 09/15/17 10:00 O2 Sat by Pulse Oximetry (%) Laboratory Last Values WBC 9.1 K/mm3 (4.0-10.0) 09/04/17 07:00 RBC 3.08 M/mm3 (4.00-5.60) L D 09/04/17 07:00 Hgb 10.0 GM/dL (11.7-16.9) L D 09/04/17 07:00 Hct 29.8 % (35.4-49) L D 09/04/17 07:00 MCV 96.7 fl (80-96) H 09/04/17 07:00 MCH 32.3 pg (25.7-33.7) 09/04/17 07:00 MCHC 33.4 g/dl (32.0-35.9) 09/04/17 07:00 RDW 22.2 % (11.9-15.9) H 09/04/17 07:00 Plt Count 342 K/MM3 (134-434) 09/04/17 07:00 MPV 10.2 fl (7.5-11.1) 09/04/17 07:00 Sodium 143 mmol/L (136-145) 09/04/17 07:00 Potassium 4.4 mmol/L (3.5-5.1) 09/04/17 07:00 Chloride 110 mmol/L (98-107) H 09/04/17 07:00 Carbon Dioxide 24 mmol/L (21-32) 09/04/17 07:00 Anion Gap 9 (8-16) 09/04/17 07:00 BUN 11 mg/dL (7-18) D 09/04/17 07:00 Creatinine 0.9 mg/dL (0.7-1.3) 09/04/17 07:00 Creat Clearance w eGFR > 60 (>60) 09/04/17 07:00 POC Glucometer 110 UNITS (80-120) 09/13/17 06:18 Random Glucose 133 mg/dL (74-106) H D 09/04/17 07:00 Calcium 8.9 mg/dL (8.5-10.1) 09/04/17 07:00 Total Bilirubin 2.9 mg/dL (0.2-1.0) H D 09/04/17 07:00 AST 26 U/L (15-37) 09/04/17 07:00 ALT 22 U/L (12-78) 09/04/17 07:00 Alkaline Phosphatase 116 U/L (45-117) 09/04/17 07:00 Total Protein 7.1 g/dl (6.4-8.2) 09/04/17 07:00 Albumin 4.2 g/dl (3.4-5.0) 09/04/17 07:00 Urine Color Yellow 09/03/17 23:20 Urine Appearance Clear 09/03/17 23:20 Urine pH 6.0 (5.0-8.0) 09/03/17 23:20 Ur Specific [place] 1.011 (1.001-1.035) 09/03/17 23:20 Urine Protein Negative (NEGATIVE) 09/03/17 23:20 Urine Glucose (UA) Negative (NEGATIVE) 09/03/17 23:20 Urine Ketones Negative (NEGATIVE) 09/03/17 23:20 Urine Blood Negative (NEGATIVE) 09/03/17 23:20 Urine Nitrite Negative (NEGATIVE) 09/03/17 23:20 Urine Bilirubin Negative (<2.0 mg/dL) 09/03/17 23:20 Urine Urobilinogen 4.0 e.u/dl mg/dL (0.2-1.0) 09/03/17 23:20 Ur Leukocyte Esterase Negative (NEGATIVE) 09/03/17 23:20 RPR Titer Nonreactive (NONREACTIVE) 09/04/17 07:00 Continue current pain medication continue to monitor
[2017-09-15] MEDS: THIAMINE HCL 100 MG TABLET (FP) PO SCH (22:08)
[2017-09-15] MEDS: MELATONIN 5 MG TABLETS PO PRN (22:09)
[2017-09-15] MEDS: MIRTAZAPINE 15 MG TABLET (FP) PO SCH (22:11)
[2017-09-15] MEDS: LIDOCAINE PATCH REMOVAL MC SCH (22:11)
[2017-09-16] MEDS: IBUPROFEN 400 MG TABLET (FP) PO PRN ×2 (07:23→19:27)
[2017-09-16] MEDS: TAMSULOSIN HCL 0.4 MG CAP.ER.24H (FP) PO SCH (09:31)
[2017-09-16] MEDS: ASPIRIN 81 MG CHEWABLE TABLETS PO SCH (09:31)
[2017-09-16] MEDS: NIFEdipine E.R. 30 MG TABLET (FP) PO SCH (09:31)
[2017-09-16] MEDS: LISINOPRIL 20 MG TABLET (FP) PO SCH (09:32)
[2017-09-16] MEDS: cloNIDine HCL 0.1 MG TABLET PO SCH ×2 (09:32→21:39)
[2017-09-16] MEDS: PRENATAL VITAMINS W/ FOLIC ACID TABLET (FP) PO SCH (09:32)
[2017-09-16] MEDS: amLODIPine BESYLATE 10 MG TABLET (FP) PO SCH (09:32)
[2017-09-16] MEDS: METHYL SALICYLATE/MENTHOL OINT 30 GM TUBE TP SCH ×2 (09:34→21:40)
[2017-09-16] MEDS: LIDOCAINE 5% TOPICAL PATCH TP SCH (09:34)
[2017-09-16] MEDS: risperiDONE 1 MG TABLET (FP) PO SCH ×2 (09:36→21:38)
[2017-09-16] MEDS: NICOTINE 21 MG/24 HOURS TOPICAL PATCH TD SCH (09:36)
[2017-09-16] MEDS: SERTRALINE HCL 50 MG TABLET (FP) PO SCH (09:36)
[2017-09-16] MEDS: ACETAMINOPHEN 325 MG TABLET (FP) PO PRN (14:14)
[2017-09-16] MEDS: MIRTAZAPINE 15 MG TABLET (FP) PO SCH (21:37)
[2017-09-16] MEDS: MELATONIN 5 MG TABLETS PO PRN (21:37)
[2017-09-16] MEDS: LIDOCAINE PATCH REMOVAL MC SCH (21:40)
[2017-09-16] MEDS: THIAMINE HCL 100 MG TABLET (FP) PO SCH (22:09)
[2017-09-17] MEDS: LISINOPRIL 20 MG TABLET (FP) PO SCH (10:04)
[2017-09-17] MEDS: SERTRALINE HCL 50 MG TABLET (FP) PO SCH (10:04)
[2017-09-17] MEDS: ASPIRIN 81 MG CHEWABLE TABLETS PO SCH (10:04)
[2017-09-17] MEDS: NICOTINE 21 MG/24 HOURS TOPICAL PATCH TD SCH (10:04)
[2017-09-17] MEDS: PRENATAL VITAMINS W/ FOLIC ACID TABLET (FP) PO SCH (10:04)
[2017-09-17] MEDS: cloNIDine HCL 0.1 MG TABLET PO SCH ×2 (10:04→21:52)
[2017-09-17] MEDS: NIFEdipine E.R. 30 MG TABLET (FP) PO SCH (10:04)
[2017-09-17] MEDS: amLODIPine BESYLATE 10 MG TABLET (FP) PO SCH (10:04)
[2017-09-17] MEDS: TAMSULOSIN HCL 0.4 MG CAP.ER.24H (FP) PO SCH (10:04)
[2017-09-17] MEDS: risperiDONE 1 MG TABLET (FP) PO SCH ×2 (10:05→21:53)
[2017-09-17] MEDS: LIDOCAINE 5% TOPICAL PATCH TP SCH (10:06)
[2017-09-17] MEDS: METHYL SALICYLATE/MENTHOL OINT 30 GM TUBE TP SCH ×2 (10:07→21:52)
[2017-09-17] MEDS: IBUPROFEN 400 MG TABLET (FP) PO PRN (10:08)
[2017-09-17] MEDS: THIAMINE HCL 100 MG TABLET (FP) PO SCH (21:52)
[2017-09-17] MEDS: MELATONIN 5 MG TABLETS PO PRN (21:52)
[2017-09-17] MEDS: MIRTAZAPINE 15 MG TABLET (FP) PO SCH (21:53)
[2017-09-17] MEDS: LIDOCAINE PATCH REMOVAL MC SCH (21:53)
[2017-09-18] MEDS: IBUPROFEN 400 MG TABLET (FP) PO PRN ×2 (07:59→21:18)
[2017-09-18] MEDS: PRENATAL VITAMINS W/ FOLIC ACID TABLET (FP) PO SCH (10:35)
[2017-09-18] MEDS: amLODIPine BESYLATE 10 MG TABLET (FP) PO SCH (10:35)
[2017-09-18] MEDS: NIFEdipine E.R. 30 MG TABLET (FP) PO SCH (10:35)
[2017-09-18] MEDS: ASPIRIN 81 MG CHEWABLE TABLETS PO SCH (10:35)
[2017-09-18] MEDS: LISINOPRIL 20 MG TABLET (FP) PO SCH (10:35)
[2017-09-18] MEDS: TAMSULOSIN HCL 0.4 MG CAP.ER.24H (FP) PO SCH (10:35)
[2017-09-18] MEDS: cloNIDine HCL 0.1 MG TABLET PO SCH ×2 (10:35→23:51)
[2017-09-18] MEDS: METHYL SALICYLATE/MENTHOL OINT 30 GM TUBE TP SCH ×2 (10:36→23:50)
[2017-09-18] MEDS: NICOTINE 21 MG/24 HOURS TOPICAL PATCH TD SCH (10:36)
[2017-09-18] MEDS: SERTRALINE HCL 50 MG TABLET (FP) PO SCH (10:36)
[2017-09-18] MEDS: LIDOCAINE 5% TOPICAL PATCH TP SCH (10:36)
[2017-09-18] MEDS: risperiDONE 1 MG TABLET (FP) PO SCH ×2 (10:36→21:20)
[2017-09-18] MEDS: THIAMINE HCL 100 MG TABLET (FP) PO SCH (21:18)
[2017-09-18] MEDS: MIRTAZAPINE 15 MG TABLET (FP) PO SCH (21:19)
[2017-09-18] MEDS: LIDOCAINE PATCH REMOVAL MC SCH (23:51)
[2017-09-19] MEDS: ASPIRIN 81 MG CHEWABLE TABLETS PO SCH (10:19)
[2017-09-19] MEDS: cloNIDine HCL 0.1 MG TABLET PO SCH ×2 (10:20→22:13)
[2017-09-19] MEDS: NIFEdipine E.R. 30 MG TABLET (FP) PO SCH (10:20)
[2017-09-19] MEDS: PRENATAL VITAMINS W/ FOLIC ACID TABLET (FP) PO SCH (10:20)
[2017-09-19] MEDS: TAMSULOSIN HCL 0.4 MG CAP.ER.24H (FP) PO SCH (10:20)
[2017-09-19] MEDS: amLODIPine BESYLATE 10 MG TABLET (FP) PO SCH (10:20)
[2017-09-19] MEDS: LISINOPRIL 20 MG TABLET (FP) PO SCH (10:20)
[2017-09-19] MEDS: risperiDONE 1 MG TABLET (FP) PO SCH ×2 (10:22→22:14)
[2017-09-19] MEDS: SERTRALINE HCL 50 MG TABLET (FP) PO SCH (10:22)
[2017-09-19] MEDS: LIDOCAINE 5% TOPICAL PATCH TP SCH (10:22)
[2017-09-19] MEDS: NICOTINE 21 MG/24 HOURS TOPICAL PATCH TD SCH (10:22)
[2017-09-19] MEDS: IBUPROFEN 400 MG TABLET (FP) PO PRN ×2 (10:23→22:15)
[2017-09-19] MEDS: METHYL SALICYLATE/MENTHOL OINT 30 GM TUBE TP SCH ×2 (10:27→22:12)
[2017-09-19] MEDS: THIAMINE HCL 100 MG TABLET (FP) PO SCH (22:13)
[2017-09-19] MEDS: MIRTAZAPINE 15 MG TABLET (FP) PO SCH (22:14)
[2017-09-19] MEDS: MELATONIN 5 MG TABLETS PO PRN (22:17)
[2017-09-20] MEDS: LIDOCAINE PATCH REMOVAL MC SCH ×2 (00:06→22:07)
[2017-09-20] MEDS: NICOTINE 21 MG/24 HOURS TOPICAL PATCH TD SCH (10:03)
[2017-09-20] MEDS: PRENATAL VITAMINS W/ FOLIC ACID TABLET (FP) PO SCH (10:04)
[2017-09-20] MEDS: SERTRALINE HCL 50 MG TABLET (FP) PO SCH (10:04)
[2017-09-20] MEDS: risperiDONE 1 MG TABLET (FP) PO SCH ×2 (10:04→22:06)
[2017-09-20] MEDS: LISINOPRIL 20 MG TABLET (FP) PO SCH (10:04)
[2017-09-20] MEDS: cloNIDine HCL 0.1 MG TABLET PO SCH ×2 (10:05→22:06)
[2017-09-20] MEDS: LIDOCAINE 5% TOPICAL PATCH TP SCH (10:05)
[2017-09-20] MEDS: NIFEdipine E.R. 30 MG TABLET (FP) PO SCH (10:05)
[2017-09-20] MEDS: TAMSULOSIN HCL 0.4 MG CAP.ER.24H (FP) PO SCH (10:05)
[2017-09-20] MEDS: METHYL SALICYLATE/MENTHOL OINT 30 GM TUBE TP SCH ×2 (10:05→22:37)
[2017-09-20] MEDS: amLODIPine BESYLATE 10 MG TABLET (FP) PO SCH (10:05)
[2017-09-20] MEDS: ASPIRIN 81 MG CHEWABLE TABLETS PO SCH (10:05)
[2017-09-20] MEDS: THIAMINE HCL 100 MG TABLET (FP) PO SCH (22:06)
[2017-09-20] MEDS: MIRTAZAPINE 15 MG TABLET (FP) PO SCH (22:06)
[2017-09-20] MEDS: IBUPROFEN 400 MG TABLET (FP) PO PRN (22:08)
[2017-09-21] MEDS: PRENATAL VITAMINS W/ FOLIC ACID TABLET (FP) PO SCH (10:31)
[2017-09-21] MEDS: ASPIRIN 81 MG CHEWABLE TABLETS PO SCH (10:31)
[2017-09-21] MEDS: TAMSULOSIN HCL 0.4 MG CAP.ER.24H (FP) PO SCH (10:31)
[2017-09-21] MEDS: NIFEdipine E.R. 30 MG TABLET (FP) PO SCH (10:32)
[2017-09-21] MEDS: cloNIDine HCL 0.1 MG TABLET PO SCH ×2 (10:32→21:44)
[2017-09-21] MEDS: NICOTINE 21 MG/24 HOURS TOPICAL PATCH TD SCH (10:32)
[2017-09-21] MEDS: amLODIPine BESYLATE 10 MG TABLET (FP) PO SCH (10:32)
[2017-09-21] MEDS: LISINOPRIL 20 MG TABLET (FP) PO SCH (10:32)
[2017-09-21] MEDS: SERTRALINE HCL 50 MG TABLET (FP) PO SCH (10:33)
[2017-09-21] MEDS: LIDOCAINE 5% TOPICAL PATCH TP SCH (10:33)
[2017-09-21] MEDS: METHYL SALICYLATE/MENTHOL OINT 30 GM TUBE TP SCH ×2 (10:33→21:44)
[2017-09-21] MEDS: risperiDONE 1 MG TABLET (FP) PO SCH ×2 (10:33→21:45)
[2017-09-21] MEDS: IBUPROFEN 400 MG TABLET (FP) PO PRN ×2 (10:35→21:46)
[2017-09-21] MEDS: LIDOCAINE PATCH REMOVAL MC SCH (21:45)
[2017-09-21] MEDS: THIAMINE HCL 100 MG TABLET (FP) PO SCH (21:45)
[2017-09-21] MEDS: MIRTAZAPINE 15 MG TABLET (FP) PO SCH (21:45)
[2017-09-22] MEDS: NIFEdipine E.R. 30 MG TABLET (FP) PO SCH (10:37)
[2017-09-22] MEDS: cloNIDine HCL 0.1 MG TABLET PO SCH ×2 (10:37→21:36)
[2017-09-22] MEDS: LISINOPRIL 20 MG TABLET (FP) PO SCH (10:37)
[2017-09-22] MEDS: PRENATAL VITAMINS W/ FOLIC ACID TABLET (FP) PO SCH (10:37)
[2017-09-22] MEDS: TAMSULOSIN HCL 0.4 MG CAP.ER.24H (FP) PO SCH (10:37)
[2017-09-22] MEDS: ASPIRIN 81 MG CHEWABLE TABLETS PO SCH (10:37)
[2017-09-22] MEDS: METHYL SALICYLATE/MENTHOL OINT 30 GM TUBE TP SCH ×2 (10:38→22:00)
[2017-09-22] MEDS: LIDOCAINE 5% TOPICAL PATCH TP SCH (10:38)
[2017-09-22] MEDS: amLODIPine BESYLATE 10 MG TABLET (FP) PO SCH (10:38)
[2017-09-22] MEDS: SERTRALINE HCL 50 MG TABLET (FP) PO SCH (10:39)
[2017-09-22] MEDS: NICOTINE 21 MG/24 HOURS TOPICAL PATCH TD SCH (10:39)
[2017-09-22] MEDS: risperiDONE 1 MG TABLET (FP) PO SCH ×2 (10:39→21:38)
[2017-09-22] MEDS: IBUPROFEN 400 MG TABLET (FP) PO PRN ×2 (10:41→21:37)
[2017-09-22] MEDS: THIAMINE HCL 100 MG TABLET (FP) PO SCH (21:36)
[2017-09-22] MEDS: MIRTAZAPINE 15 MG TABLET (FP) PO SCH (21:38)
[2017-09-22] MEDS: LIDOCAINE PATCH REMOVAL MC SCH (21:38)
--- NOTE | 2017-09-23 08:19 | PN ---
Psychiatric Progress Note Vital Signs: Vital Signs Period Temp Pulse Resp BP Sys/Villatoro Pulse Ox Last 24 Hr 97.8 F 66-75 18-18 134-142/74-83 Date of Session: 09/23/17 Chief Complaint:: Discharge Note HPI: Patient addressing Opioid and Cannabis Dependence comorbid with Nicotine Dependence, Paranoid Schizophrenia, Substance-Induced Mood Disorder and Substance-Induced Sleep Disorder ROS: Asthma, HTN, HLD, Hep C, Sickle Cell anemia Current Medications: Active Medications Generic Name Dose Route Start Last Admin Trade Name Freq PRN Reason Stop Dose Admin Acetaminophen 650 mg 09/03/17 16:46 09/16/17 14:14 Tylenol - PO 650 mg Q4H PRN Administration FEVER Al Hydroxide/Mg Hydroxide 30 ml 09/03/17 16:46 Mylanta Oral Suspension - PO Q6H PRN DYSPEPSIA Albuterol Sulfate 2 puff 09/03/17 16:50 Ventolin Hfa Inhaler - IH Q4H PRN SHORT OF BREATH/WHEEZING Amlodipine Besylate 10 mg 09/04/17 10:00 09/22/17 10:38 Norvasc - PO 10 mg DAILY ALEX Administration Aspirin 81 mg 09/04/17 10:00 09/22/17 10:37 Asa - PO 81 mg DAILY ALEX Administration Clonidine 0.2 mg 09/05/17 22:00 09/22/17 21:36 Catapres - PO 0.2 mg BID ALEX Administration Eucalyptus/Menthol/Phenol/Sorbitol 1 each 09/03/17 16:46 Cepastat Lozenge - MM Q4H PRN SORE THROAT Guaifenesin 10 ml 09/03/17 16:46 Robitussin Dm - PO Q6H PRN COUGH Hydroxyzine Pamoate 50 mg 09/03/17 16:46 09/14/17 10:04 Vistaril - PO 50 mg Q4H PRN Administration AGITATION Ibuprofen 800 mg 09/03/17 16:50 09/22/17 21:37 Motrin - PO 800 mg Q8H PRN Administration PAIN LEVEL 6-10 Lidocaine 2 patch 09/06/17 10:00 09/22/17 10:38 Lidoderm Patch - TP 2 patch DAILY ALEX Administration Lisinopril 20 mg 09/04/17 10:00 09/22/17 10:37 Prinivil PO 20 mg DAILY ALEX Administration Loperamide HCl 4 mg 09/03/17 16:46 Imodium - PO Q6H PRN DIARRHEA Magnesium Citrate 300 ml 09/03/17 16:46 Citroma - PO Q48H PRN CONSTIPATION Magnesium Hydroxide 30 ml 09/03/17 16:46 Milk Of Magnesia - PO DAILY PRN CONSTIPATION Melatonin 5 mg 09/03/17 22:00 09/19/17 22:17 Melatonin PO 5 mg HS PRN Administration INSOMNIA Methyl Salicylate 1 applic 09/09/17 22:00 09/22/17 22:00 Haile-Burns - TP Not Given BID ALEX Mirtazapine 7.5 mg 09/03/17 22:00 09/22/17 21:38 Remeron - PO 7.5 mg HS ALEX Administration Miscellaneous 2 each 09/05/17 22:00 09/22/17 21:38 Lidoderm Patch Removal MC 2 each DAILY@2200 ALEX Administration Nicotine 21 mg 09/04/17 10:00 09/22/17 10:39 Nicoderm Patch - TD Not Given DAILY ALEX Nicotine Polacrilex 2 mg 09/03/17 16:46 Nicorette Gum - BC Q2H PRN NICOTINE REPLACEMENT RX Nifedipine 30 mg 09/04/17 10:00 09/22/17 10:37 Procardia Xl - PO 30 mg DAILY ALEX Administration Multivit/Folic Acid/Iron 1 tab 09/04/17 10:00 09/22/17 10:37 Vitamins (Sjr) - PO 1 tab DAILY ALEX Administration Pseudoephedrine/Triprolidine 1 combo 09/03/17 16:46 Actifed - PO TID PRN NASAL CONGESTION Risperidone 0.5 mg 09/03/17 22:00 09/22/17 21:38 Risperdal - PO Not Given BID ALEX Sertraline HCl 50 mg 09/04/17 10:00 09/22/17 10:39 Zoloft - PO Not Given DAILY ALEX Tamsulosin HCl 0.4 mg 09/04/17 10:00 09/22/17 10:37 Flomax - PO 0.4 mg DAILY ALEX Administration Thiamine HCl 100 mg 09/03/17 22:00 09/22/17 21:36 Vitamin B1 - PO 100 mg HS ALEX Administration Current Side Effect: No Lab tests ordered: Yes Lab tests reviewed: Yes Provider note:: Patient will complete this program on 09/24/17. He has met his treatment goals and sarah continue to address his issues in [facility] treatment treatment at [facility] at [address] [place] [id number]. He responded well to Risperdal 0.5 mg po BID, Zoloft 50 mg po daily and Remeron 7.5 mg po HS. Scripts for 30 days supply of these medications will be electronically transmitted to [facility] at [address] [place] [id number]. He is stable for discharge on 09/24/17 Total face to face time:: 35 Mental Status Exam - Mental Status Exam Alert and Oriented to: Time, Place, Person Cognitive Function: Fair Patient Appearance: Well Groomed Mood: Hopeful, Euthymic Patient Behavior: Cooperative Speech Pattern: Clear Voice Loudness: Normal Thought Process: Intact, Goal Oriented Thought Disorder: Not Present Hallucinations: Denies Suicidal Ideation: Denies Homicidal Ideation: Denies Insight/Judgement: Fair Sleep: Fair Appetite: Good Muscle strength/Tone: Normal Gait/Station: Other (uses a wheechair as ambulatory aid) Psychiatric Treatment Plan - Problem List (1) Opioid dependence Current Visit: Yes Qualifiers: Substance use status: uncomplicated Qualified Code(s): F11.20 - Opioid dependence, uncomplicated (2) Cannabis dependence Current Visit: Yes (3) Nicotine dependence Current Visit: Yes Qualifiers: Nicotine product type: cigarettes Substance use status: uncomplicated Qualified Code(s): F17.210 - Nicotine dependence, cigarettes, uncomplicated (4) Paranoid schizophrenia Current Visit: No (5) Substance induced mood disorder Current Visit: Yes (6) Substance-induced sleep disorder Current Visit: Yes (7) Asthma Current Visit: Yes Qualifiers: Asthma severity: mild Asthma persistence: intermittent Asthma complication type: uncomplicated Qualified Code(s): J45.20 - Mild intermittent asthma, uncomplicated (8) Essential hypertension Current Visit: Yes (9) Hypercholesterolemia Current Visit: Yes (10) Hepatitis C Current Visit: No Qualifiers: Viral hepatitis chronicity: chronic Hepatic coma status: without hepatic coma Qualified Code(s): B18.2 - Chronic viral hepatitis C (11) Severe anemia Current Visit: No (12) Sickle cell anemia Current Visit: No Qualifiers: Sickle-cell associated disorders: with splenic sequestration Qualified Code (s): 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
[2017-09-23] MEDS: LISINOPRIL 20 MG TABLET (FP) PO SCH (10:23)
[2017-09-23] MEDS: LIDOCAINE 5% TOPICAL PATCH TP SCH (10:23)
[2017-09-23] MEDS: TAMSULOSIN HCL 0.4 MG CAP.ER.24H (FP) PO SCH (10:23)
[2017-09-23] MEDS: cloNIDine HCL 0.1 MG TABLET PO SCH ×2 (10:23→21:55)
[2017-09-23] MEDS: NIFEdipine E.R. 30 MG TABLET (FP) PO SCH (10:23)
[2017-09-23] MEDS: ASPIRIN 81 MG CHEWABLE TABLETS PO SCH (10:23)
[2017-09-23] MEDS: METHYL SALICYLATE/MENTHOL OINT 30 GM TUBE TP SCH ×2 (10:23→21:55)
[2017-09-23] MEDS: amLODIPine BESYLATE 10 MG TABLET (FP) PO SCH (10:23)
[2017-09-23] MEDS: PRENATAL VITAMINS W/ FOLIC ACID TABLET (FP) PO SCH (10:23)
[2017-09-23] MEDS: NICOTINE 21 MG/24 HOURS TOPICAL PATCH TD SCH (10:24)
[2017-09-23] MEDS: risperiDONE 1 MG TABLET (FP) PO SCH ×2 (10:24→21:58)
[2017-09-23] MEDS: SERTRALINE HCL 50 MG TABLET (FP) PO SCH (10:24)
[2017-09-23] MEDS: IBUPROFEN 400 MG TABLET (FP) PO PRN ×2 (10:24→21:57)
--- NOTE | 2017-09-23 16:42 | PN ---
[facility] Progress Note Note: Patient medically stable. Schedule for d/c tomorrow. Patient to follow up with primary care provider upon d/c.
[2017-09-23] MEDS: THIAMINE HCL 100 MG TABLET (FP) PO SCH (21:55)
[2017-09-23] MEDS: MIRTAZAPINE 15 MG TABLET (FP) PO SCH (21:58)
[2017-09-23] MEDS: LIDOCAINE PATCH REMOVAL MC SCH (21:58)
[2017-09-24 07:07] VITALS: TEMP 98.2
[2017-09-24] MEDS: LISINOPRIL 20 MG TABLET (FP) PO SCH (09:00)
[2017-09-24] MEDS: LIDOCAINE 5% TOPICAL PATCH TP SCH (09:00)
[2017-09-24] MEDS: cloNIDine HCL 0.1 MG TABLET PO SCH (09:00)
[2017-09-24] MEDS: TAMSULOSIN HCL 0.4 MG CAP.ER.24H (FP) PO SCH (09:00)
[2017-09-24] MEDS: PRENATAL VITAMINS W/ FOLIC ACID TABLET (FP) PO SCH (09:00)
[2017-09-24] MEDS: METHYL SALICYLATE/MENTHOL OINT 30 GM TUBE TP SCH (09:00)
[2017-09-24] MEDS: ASPIRIN 81 MG CHEWABLE TABLETS PO SCH (09:00)
[2017-09-24] MEDS: amLODIPine BESYLATE 10 MG TABLET (FP) PO SCH (09:01)
[2017-09-24] MEDS: NICOTINE 21 MG/24 HOURS TOPICAL PATCH TD SCH (09:01)
[2017-09-24] MEDS: SERTRALINE HCL 50 MG TABLET (FP) PO SCH (09:03)
[2017-09-24] MEDS: risperiDONE 1 MG TABLET (FP) PO SCH (09:03)
[2017-09-24] MEDS: NIFEdipine E.R. 30 MG TABLET (FP) PO SCH (09:03)
[2017-09-24] MEDS ORDERED: PT OWN MED DRAWER 7, Y5N ONE (09:07)
[2017-09-24 09:58] VITALS: BP 156/85; PULSE 79
== END 2017-09-24 09:10 | disposition home or self-care (01) | DRG 772 ==
LOC: YASAS 14:31 → Y3W 16:56
PROVIDERS: ADMIT Psychiatry & Neurology Psychiatry; ATTEND Psychiatry & Neurology Psychiatry
PROC: HZ42ZZZ Group Counseling for Substance Abuse Treatment, Cognitive-Behavioral (ICD-10-PCS; principal; 2017-09-03)
DX: F10.20 Alcohol dependence, uncomplicated (principal); F12.20 Cannabis dependence, uncomplicated; F17.210 Nicotine dependence, cigarettes, uncomplicated; F19.24 Other psychoactive substance dependence with psychoactive substance-induced mood disorder; F19.282 Other psychoactive substance dependence with psychoactive substance-induced sleep disorder; F20.0 Paranoid schizophrenia; I10 Essential (primary) hypertension; J45.20 Mild intermittent asthma, uncomplicated; E78.00 Pure hypercholesterolemia, unspecified; B18.2 Chronic viral hepatitis C; D57.02 Hb-SS disease with splenic sequestration
CPT/HCPCS: 36415; 80053; 81003; 82962; 85027; 86593; 93005; 93010; J0735; J2794